=== PATIENT | male | born 1935 | race Caucasian/White ===

== ENCOUNTER → 2016-09-22 | Outpatient (CLI) | payer MEDICARE, OTHER ==
[~2016-09-22] MED LIST: ACET-654 PO; ADV250INH INH; ADV500INH INH; ALDA25TA2 PO; ASPI81TA4 PO; ASPI81TA85 PO; ATEN50TA2 PO; ATRO0.06; CALA80TA PO; CALC600T7 PO; COLA100C PO; COMBAER6 INH; D 202000 PO; D 50CAP PO; DEMA20TA6 PO; FELO5TAB3 PO; FERR325T3 PO; FINA5TAB2 PO; FLON0.054; FOSA70TA PO; GUAI1TAB PO; K-TA10TA2 PO; LASI20TA PO; LOPR1TAB6 PO; MAGN400C2 PO; MAGN400T2 PO; MUCI600T34 PO; OXYGEN; PACE200T PO; PLAV75TA38 PO; POTA1TAB14 PO; PROT1TAB2 PO; SENN8.6T76 PO; SPIR1CAP IN; TAMS0.4C2 PO; TYLE167L PO; VERA240T16 PO; VITA100072 PO; VITA100T20 PO; XARE20TA PO; ZOCO40TA PO
[2016-09-22 13:41] LABS: FREE T4 1.58 NG/DL (0.76-1.46)
== END ==
LOC: M SMT 10:08
PROVIDERS: ATTEND Nurse Practitioner Family
DX: E03.9 Hypothyroidism, unspecified (principal)

== ENCOUNTER → 2016-12-29 | Outpatient (CLI) | payer MEDICARE, OTHER ==
[~2016-12-29] MED LIST changes: -COLA100C PO; +COLA100C3 PO
[2016-12-29 13:34] LABS: BASO % 0.3 % (0.0-1.0); EOS # 0.1 K/mm3 (0.0-0.50); EOS % 2.2 % (0.0-3.0); LARGE UNSTAINED CELL # 0.1 K/mm3 (0.0-0.4); LARGE UNSTAINED CELL % 2.4 % (0.0-4.0); LYMPH # 0.7 K/mm3 (1.5-4.5); LYMPH % 11.6 % (24.0-44.0); MEAN CORPUSCULAR HEMOGLOBIN 32.3 pg (27.0-33.0); MEAN CORPUSCULAR HGB CONC 34.1 g/dl (32.0-36.5); MEAN CORPUSCULAR VOLUME 94.6 fl (80.0-96.0); MONO # 0.5 K/mm3 (0.0-0.8); MONO % 7.7 % (0.0-5.0); NEUTROPHILS # 4.6 K/mm3 (1.8-7.7); NEUTROPHILS % 75.8 % (36.0-66.0); PLATELET COUNT, AUTOMATED 228 k/mm3 (150-450); RED CELL DISTRIBUTION WIDTH 14.9 % (11.5-14.5)
[2016-12-29 13:55] LABS: ALBUMIN 3.2 GM/DL (3.2-5.2); BILIRUBIN,TOTAL 0.3 MG/DL (0.2-1.0); CALCIUM LEVEL 8.6 MG/DL (8.8-10.2); CREATININE FOR GFR 1.31 MG/DL (0.70-1.30); FREE T4 1.59 NG/DL (0.76-1.46); GLOMERULAR FILTRATION RATE 55.8 (>35); PERCENT SATURATION 11.2 % (19.7-37.4); POTASSIUM SERUM 4.5 MEQ/L (3.5-5.1); TOTAL PROTEIN 6.4 GM/DL (6.4-8.2)
== END ==
LOC: M SMT 08:36
PROVIDERS: ATTEND Nurse Practitioner Family
DX: D64.9 Anemia, unspecified (principal); I11.9 Hypertensive heart disease without heart failure; E03.2 Hypothyroidism due to medicaments and other exogenous substances

== ENCOUNTER → 2017-03-23 | Outpatient (CLI) | payer MEDICARE, OTHER ==
[~2017-03-23] MED LIST changes: -ACET-654 PO; +ACET1TAB17 PO; +ASPI81TA18 PO; -ASPI81TA4 PO; -COLA100C3 PO; +COLA100C5 PO; +FELO5TAB PO; -FELO5TAB3 PO; -MUCI600T34 PO; +MUCI600T37 PO; +PLAV1TAB2 PO; -PLAV75TA38 PO
--- NOTE | 2017-03-23 09:45 | REP ---
Chest two views HISTORY: Tachycardia Comparison: 02/07/2016 A minimal increase in interstitial markings is present consistent with chronic interstitial change. The heart is normal in size. The pulmonary vasculature is normal in appearance. The bony structure is intact. IMPRESSION: Chronic interstitial change. Signed by Pritesh Melo MD 03/23/2017 09:37 A
== END ==
LOC: M SMT 09:15
PROVIDERS: ATTEND Nurse Practitioner Family
DX: I47.2 Ventricular tachycardia (principal)

== ENCOUNTER → 2017-03-29 | Outpatient (CLI) | payer MEDICARE, OTHER ==
[2017-03-29 14:58] LABS: ALBUMIN 3.5 GM/DL (3.2-5.2); ALBUMIN/GLOBULIN RATIO 1.17 (1.00-1.93); BILIRUBIN,TOTAL 0.4 MG/DL (0.2-1.0); CALCIUM LEVEL 9.3 MG/DL (8.8-10.2); CREATININE FOR GFR 1.46 MG/DL (0.70-1.30); FREE T4 1.87 NG/DL (0.76-1.46); GLOMERULAR FILTRATION RATE 49.2 (>35); POTASSIUM SERUM 4.6 MEQ/L (3.5-5.1); TOTAL PROTEIN 6.5 GM/DL (6.4-8.2)
== END ==
LOC: M SMT 08:46
PROVIDERS: ATTEND Nurse Practitioner Family
DX: I11.9 Hypertensive heart disease without heart failure (principal); E03.9 Hypothyroidism, unspecified

== ENCOUNTER → 2017-05-07 | Outpatient (REF) | payer MEDICARE, OTHER | LOC: M LAB REF 14:13 | PROVIDERS: ATTEND Family Medicine | DX: L82.1 Other seborrheic keratosis (principal); L85.8 Other specified epidermal thickening | CPT/HCPCS: 11100; 88305; G0463 ==

== ENCOUNTER → 2017-06-07 | Outpatient (REF) | payer MEDICARE, OTHER ==
[2017-06-07 12:05] LABS: ALBUMIN 3.2 GM/DL (3.2-5.2); ALBUMIN/GLOBULIN RATIO 0.97 (1.00-1.93); BILIRUBIN,TOTAL 0.5 MG/DL (0.2-1.0); CALCIUM LEVEL 8.8 MG/DL (8.8-10.2); CREATININE FOR GFR 1.29 MG/DL (0.70-1.30); FREE T4 1.7 NG/DL (0.76-1.46); GLOMERULAR FILTRATION RATE 56.8 (>35); POTASSIUM SERUM 4.4 MEQ/L (3.5-5.1); TOTAL PROTEIN 6.5 GM/DL (6.4-8.2)
== END ==
LOC: M SFHCPLAZ 08:46
PROVIDERS: ATTEND Nurse Practitioner Family
DX: I11.9 Hypertensive heart disease without heart failure (principal); E03.2 Hypothyroidism due to medicaments and other exogenous substances; I25.10 Atherosclerotic heart disease of native coronary artery without angina pectoris

== ENCOUNTER → 2017-10-26 | Outpatient (CLI) | payer MEDICARE, OTHER | LOC: M SMT 10:06 | DX: J84.9 Interstitial pulmonary disease, unspecified (principal); J44.9 Chronic obstructive pulmonary disease, unspecified | CPT/HCPCS: 71046 ==

== ENCOUNTER 2017-11-07 09:16 | Emergency (ER) | payer MEDICARE, OTHER ==
[2017-11-07] MEDS: TETANUS/DIPHTHERIA TOX ADSORB ADULT 0.5ML SYR/VIAL (90714) IM (10:03)
== END 2017-11-07 10:16 | disposition home or self-care (01) ==
LOC: M ED 09:16
DX: S51.002A Unspecified open wound of left elbow, initial encounter (principal); W22.09XA Striking against other stationary object, initial encounter; Y92.009 Unspecified place in unspecified non-institutional (private) residence as the place of occurrence of the external cause; I10 Essential (primary) hypertension; J44.9 Chronic obstructive pulmonary disease, unspecified; E78.00 Pure hypercholesterolemia, unspecified; E03.9 Hypothyroidism, unspecified; K21.9 Gastro-esophageal reflux disease without esophagitis; Z79.899 Other long term (current) drug therapy; Z79.01 Long term (current) use of anticoagulants; Z79.82 Long term (current) use of aspirin; Z98.890 Other specified postprocedural states; I25.2 Old myocardial infarction
CPT/HCPCS: 90714

== ENCOUNTER → 2017-11-08 | Outpatient (REF) | payer MEDICARE, OTHER ==
[2017-11-08 12:24] LABS: FREE T4 2.25 NG/DL (0.76-1.46); THYROID STIMULATING HORMONE 0.174 uIU/ML (0.358-3.740)
== END ==
LOC: M SFHCPLAZ 09:25
DX: E03.9 Hypothyroidism, unspecified (principal)
CPT/HCPCS: 84443

== ENCOUNTER → 2017-12-22 | Outpatient (CLI) | payer MEDICARE, OTHER ==
[2017-12-22 13:49] LABS: BASO % 0.6 % (0.0-1.0); EOS # 0.1 10^3/uL (0.0-0.50); EOS % 1.1 % (0.0-3.0); HEMATOCRIT 39.9 % (42.0-52.0); HEMOGLOBIN 12.5 g/dl (13.5-17.5); IMMATURE GRANULOCYTE % 0.5 % (0-3.0); LYMPH # 0.7 10^3/uL (1.5-4.5); LYMPH % 10.7 % (24.0-44.0); MEAN CORPUSCULAR HEMOGLOBIN 28.3 pg (27.0-33.0); MEAN CORPUSCULAR HGB CONC 31.3 g/dl (32.0-36.5); MEAN CORPUSCULAR VOLUME 90.5 fl (80.0-96.0); MONO # 0.8 10^3/uL (0.0-0.8); MONO % 12.3 % (0.0-5.0); NEUTROPHILS # 4.8 10^3/uL (1.8-7.7); NEUTROPHILS % 74.8 % (36.0-66.0); PLATELET COUNT, AUTOMATED 228 10^3/uL (150-450); RED BLOOD COUNT 4.41 10^6/uL (4.30-6.10); RED CELL DISTRIBUTION WIDTH 22.1 % (11.5-14.5); WHITE BLOOD COUNT 6.4 10^3/uL (4.0-10.0)
[2017-12-22 14:42] LABS: ALBUMIN 3.5 GM/DL (3.2-5.2); ALBUMIN/GLOBULIN RATIO 1.03 (1.00-1.93); ALKALINE PHOSPHATASE 67 U/L (45-117); ALT/SGPT 39 U/L (12-78); ANION GAP 5 MEQ/L (8-16); AST/SGOT 36 U/L (7-37); BILIRUBIN,TOTAL 0.4 MG/DL (0.2-1.0); BLOOD UREA NITROGEN 17 MG/DL (7-18); CALCIUM LEVEL 8.9 MG/DL (8.8-10.2); CARBON DIOXIDE LEVEL 29 MEQ/L (21-32); CHLORIDE LEVEL 107 MEQ/L (98-107); CREATININE FOR GFR 1.51 MG/DL (0.70-1.30); FREE T4 1.69 NG/DL (0.76-1.46); GLOMERULAR FILTRATION RATE 47.2 (>35); GLUCOSE, FASTING 106 MG/DL (70-100); MAGNESIUM LEVEL 2.1 MG/DL (1.8-2.4); POTASSIUM SERUM 4.8 MEQ/L (3.5-5.1); SODIUM LEVEL 141 MEQ/L (136-145); TOTAL PROTEIN 6.9 GM/DL (6.4-8.2)
== END ==
LOC: M SMT 09:16
DX: I47.2 Ventricular tachycardia (principal)
CPT/HCPCS: 83735

== ENCOUNTER → 2018-01-04 | Outpatient (REF) | payer MEDICARE, OTHER ==
[2018-01-04 12:42] LABS: BASO % 0.3 % (0.0-1.0); EOS % 0.5 % (0.0-3.0); HEMATOCRIT 37.7 % (42.0-52.0); IMMATURE GRANULOCYTE % 0.5 % (0-3.0); LYMPH # 0.5 10^3/uL (1.5-4.5); LYMPH % 8.1 % (24.0-44.0); MEAN CORPUSCULAR HEMOGLOBIN 29.1 pg (27.0-33.0); MEAN CORPUSCULAR HGB CONC 31.8 g/dl (32.0-36.5); MEAN CORPUSCULAR VOLUME 91.5 fl (80.0-96.0); MONO # 0.9 10^3/uL (0.0-0.8); MONO % 14.1 % (0.0-5.0); NEUTROPHILS # 4.8 10^3/uL (1.8-7.7); NEUTROPHILS % 76.5 % (36.0-66.0); PLATELET COUNT, AUTOMATED 190 10^3/uL (150-450); RED BLOOD COUNT 4.12 10^6/uL (4.30-6.10); RED CELL DISTRIBUTION WIDTH 20.1 % (11.5-14.5); WHITE BLOOD COUNT 6.3 10^3/uL (4.0-10.0)
[2018-01-04 13:00] LABS: ALBUMIN/GLOBULIN RATIO 0.88 (1.00-1.93); ALKALINE PHOSPHATASE 56 U/L (45-117); ALT/SGPT 37 U/L (12-78); ANION GAP 9 MEQ/L (8-16); AST/SGOT 30 U/L (7-37); BILIRUBIN,TOTAL 0.5 MG/DL (0.2-1.0); BLOOD UREA NITROGEN 17 MG/DL (7-18); CALCIUM LEVEL 8.6 MG/DL (8.8-10.2); CARBON DIOXIDE LEVEL 28 MEQ/L (21-32); CHLORIDE LEVEL 106 MEQ/L (98-107); CREATININE FOR GFR 1.32 MG/DL (0.70-1.30); FREE T4 1.98 NG/DL (0.76-1.46); GLOMERULAR FILTRATION RATE 55.1 (>35); GLUCOSE, FASTING 96 MG/DL (70-100); IRON (FE) 28 UG/DL (65-175); PERCENT SATURATION 9.8 % (19.7-50.0); POTASSIUM SERUM 4.3 MEQ/L (3.5-5.1); SODIUM LEVEL 143 MEQ/L (136-145); THYROID STIMULATING HORMONE 0.934 uIU/ML (0.358-3.740); TOTAL IRON BINDING CAPACITY 286 UG/DL (250-450); TOTAL PROTEIN 6.4 GM/DL (6.4-8.2)
[2018-01-04 13:49] LABS: CREATININE, URINE 15.8 MG/DL; MALB URINE SIEMENS 9.6 MG/L; MAU/CREAT RATIO 60.7 MCG/MG (0.0-30.0)
== END ==
LOC: M SFHCPLAZ 09:41
DX: D64.9 Anemia, unspecified (principal); I11.9 Hypertensive heart disease without heart failure; E03.2 Hypothyroidism due to medicaments and other exogenous substances
CPT/HCPCS: 83550

== ENCOUNTER → 2018-02-16 | Outpatient (REF) | payer MEDICARE, OTHER ==
[2018-02-17 13:38] LABS: BASO # 0.1 10^3/uL (0.0-0.2); BASO % 0.9 % (0.0-1.0); EOS # 0.1 10^3/uL (0.0-0.50); EOS % 1.7 % (0.0-3.0); HEMATOCRIT 39.5 % (42.0-52.0); HEMOGLOBIN 12.6 g/dl (13.5-17.5); IMMATURE GRANULOCYTE % 0.4 % (0-3.0); LYMPH # 0.7 10^3/uL (1.5-4.5); LYMPH % 10.2 % (24.0-44.0); MEAN CORPUSCULAR HGB CONC 31.9 g/dl (32.0-36.5); MONO # 0.8 10^3/uL (0.0-0.8); MONO % 11.5 % (0.0-5.0); NEUTROPHILS # 5.2 10^3/uL (1.8-7.7); NEUTROPHILS % 75.3 % (36.0-66.0); PLATELET COUNT, AUTOMATED 301 10^3/uL (150-450); RED CELL DISTRIBUTION WIDTH 17.3 % (11.5-14.5); WHITE BLOOD COUNT 6.9 10^3/uL (4.0-10.0)
== END ==
LOC: M SFHCPLAZ 16:53
DX: J44.9 Chronic obstructive pulmonary disease, unspecified (principal)
CPT/HCPCS: 85025

== ENCOUNTER → 2018-02-17 | Outpatient (CLI) | payer MEDICARE, OTHER | LOC: M SMT 10:04 | DX: J44.9 Chronic obstructive pulmonary disease, unspecified (principal); R05 Cough | CPT/HCPCS: 71046 ==

== ENCOUNTER → 2018-05-20 | Outpatient (REF) | payer MEDICARE, OTHER | LOC: M SFHCPLAZ 10:50 | DX: E03.2 Hypothyroidism due to medicaments and other exogenous substances (principal); E78.00 Pure hypercholesterolemia, unspecified; R63.4 Abnormal weight loss; Z53.8 Procedure and treatment not carried out for other reasons ==

== ENCOUNTER → 2018-05-21 | Outpatient (CLI) | payer MEDICARE, OTHER ==
[2018-05-21 09:46] LABS: BASO % 0.5 % (0.0-1.0); EOS # 0.1 10^3/uL (0.0-0.50); EOS % 0.8 % (0.0-3.0); HEMATOCRIT 38.7 % (42.0-52.0); HEMOGLOBIN 12.4 g/dl (13.5-17.5); IMMATURE GRANULOCYTE % 0.5 % (0-3.0); LYMPH # 0.6 10^3/uL (1.5-4.5); LYMPH % 7.3 % (24.0-44.0); MEAN CORPUSCULAR HEMOGLOBIN 30.9 pg (27.0-33.0); MEAN CORPUSCULAR VOLUME 96.5 fl (80.0-96.0); MONO # 0.9 10^3/uL (0.0-0.8); MONO % 10.2 % (0.0-5.0); NEUTROPHILS % 80.7 % (36.0-66.0); PLATELET COUNT, AUTOMATED 294 10^3/uL (150-450); RED BLOOD COUNT 4.01 10^6/uL (4.30-6.10); RED CELL DISTRIBUTION WIDTH 14.8 % (11.5-14.5); WHITE BLOOD COUNT 8.6 10^3/uL (4.0-10.0)
[2018-05-21 10:00] LABS: APPEARANCE, URINE CLEAR (CLEAR); BACTERIA, URINE AUTO NEGATIVE (NEGATIVE); BILIRUBIN, URINE AUTO NEGATIVE (NEGATIVE); BLOOD, URINE BLOOD NEGATIVE (NEGATIVE); COLOR, URINE STRAW (YELLOW); GLUCOSE, URINE (UA) AUTO NEGATIVE (NEGATIVE); KETONE, URINE AUTO NEGATIVE (NEGATIVE); LEUKOCYTE ESTERASE, URINE AUTO NEGATIVE (NEGATIVE); MUCUS, URINE SMALL (NEGATIVE); NITRITE, URINE AUTO NEGATIVE (NEGATIVE); PROTEIN, URINE AUTO NEGATIVE (NEGATIVE); RBC, URINE AUTO 3 /HPF (0-3); SPECIFIC GRAVITY URINE AUTO 1.004 (1.002-1.035); SQUAMOUS EPITHELIAL CELL UR AU 0 /HPF (0-6); UROBILINOGEN, URINE AUTO 0.2 mg/dL (0.0-2.0); WBC, URINE AUTO 0 /HPF (0-3)
[2018-05-21 10:13] LABS: ALBUMIN 2.9 GM/DL (3.2-5.2); ALBUMIN/GLOBULIN RATIO 0.74 (1.00-1.93); ALKALINE PHOSPHATASE 88 U/L (45-117); ALT/SGPT 40 U/L (12-78); ANION GAP 8 MEQ/L (8-16); AST/SGOT 36 U/L (7-37); BILIRUBIN,TOTAL 0.4 MG/DL (0.2-1.0); BLOOD UREA NITROGEN 13 MG/DL (7-18); CALCIUM LEVEL 8.6 MG/DL (8.8-10.2); CARBON DIOXIDE LEVEL 26 MEQ/L (21-32); CHLORIDE LEVEL 104 MEQ/L (98-107); CREATININE FOR GFR 1.21 MG/DL (0.70-1.30); GLOMERULAR FILTRATION RATE > 60.0 (>35); GLUCOSE, FASTING 97 MG/DL (70-100); POTASSIUM SERUM 4.4 MEQ/L (3.5-5.1); SODIUM LEVEL 138 MEQ/L (136-145); TOTAL PROTEIN 6.8 GM/DL (6.4-8.2)
== END ==
LOC: M LAB 09:09
DX: E03.2 Hypothyroidism due to medicaments and other exogenous substances (principal); E78.00 Pure hypercholesterolemia, unspecified; R63.4 Abnormal weight loss
CPT/HCPCS: 84443

== ENCOUNTER → 2018-06-28 | Outpatient (CLI) | payer MEDICARE, OTHER | LOC: M ADAMS 09:29 | DX: I51.7 Cardiomegaly (principal); I70.0 Atherosclerosis of aorta; J98.4 Other disorders of lung; R05 Cough; Z87.09 Personal history of other diseases of the respiratory system; Z23 Encounter for immunization | CPT/HCPCS: 71046 ==

== ENCOUNTER → 2018-07-11 | Outpatient (CLI) | payer MEDICARE, OTHER | LOC: M RAD 07:36 | DX: I71.4 Abdominal aortic aneurysm, without rupture (principal) | CPT/HCPCS: 76775 ==

== ENCOUNTER → 2018-08-22 | Outpatient (CLI) | payer MEDICARE, OTHER ==
[~2018-08-22] MED LIST changes: -ACET1TAB17 PO; +ACET1TAB55 PO; -ASPI81TA18 PO; +ASPI81TA52 PO
--- NOTE | 2018-08-22 13:38 | REP ---
CT study of the abdomen and pelvis without IV or oral contrast: History: Abdominal aortic aneurysm without rupture. Comparison aortic sonography from July 11, 2018 shows a 6.7 x 8.7 cm fusiform aneurysm of the abdominal aorta. No comparison CT study. CT findings: Digital preliminary fire protection specialist radiograph demonstrates an aortobi-iliac stent graft. Bowel gas pattern is normal. The lung bases show bilateral basilar interstitial coarse fibrosis. There is some atelectasis with air bronchograms in the right middle lobe. No pleural effusion is seen. No focal hepatic or splenic lesion is seen. The distal thoracic aorta is tortuous and calcific but not aneurysmal. Calcification is seen at the SMA and bilateral renal artery origins. There may be a stent in the left renal artery. There is an aortobi-iliac stent graft noted in place. The [place] aortic aneurysm measures 8.2 cm in transverse dimension by 7.0 cm in greatest anteroposterior dimension. There is a right internal iliac artery aneurysm measuring 3.1 cm and a left internal iliac artery aneurysm is noted as well. This measures 2.8 cm in diameter. There is a cyst overlying the common femoral artery in the left groin 4.9 x 3.0 x 3.4 cm. This is compatible with an old hematoma seroma cavity. There is no evidence of retroperitoneal hemorrhage. There is a cyst in the left mid kidney which measures 3.2 cm in greatest diameter. No pancreatic abnormality is seen. The gallbladder is unremarkable. Small and large intestinal bowel loops are normal. There are dystrophic calcifications in the prostate gland. Impression: Aortobi-iliac stent graft for a large abdominal aortic aneurysm as above. 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 There is a hematoma seroma anterior to the common femoral artery on the left. There are small left renal cysts. Electronically Signed by Liban Chung MD 08/22/2018 08:04 P
== END ==
LOC: M RAD 09:24
PROVIDERS: ATTEND Surgery Vascular Surgery
DX: I71.4 Abdominal aortic aneurysm, without rupture (principal); N28.1 Cyst of kidney, acquired

== ENCOUNTER → 2018-09-15 | Outpatient (REF) | payer MEDICARE, OTHER ==
[~2018-09-15] MED LIST changes: -LASI20TA PO; +LASI20TA3 PO
[2018-09-15 18:21] LABS: TOTAL PROTEIN 6.8 GM/DL (6.4-8.2)
[2018-09-15 18:32] LABS: FOLATE 9.4 NG/ML (>5.4); VITAMIN B12 LEVEL 1089 PG/ML (247-911)
[2018-09-18 00:06] LABS: FREE KAPPA LIGHT CHAINS SERUM 62.1 mg/L (3.3-19.4); FREE LAMBDA LIGHT CHAINS SERUM 36.8 mg/L (5.7-26.3); KAPPA/LAMBDA RATIO SERUM 1.69 (0.26-1.65)
[2018-09-20 12:45] LABS: ALBUMIN 3.24 GM/DL (3.29-5.55); ALBUMIN % 47.6 % (55.8-66.1); ALPHA-1-GLOBULIN % 6.5 % (2.9-4.9); ALPHA-1-GLOBULINS 0.44 GM/DL (0.17-0.41); ALPHA-2-GLOBULINS 0.86 GM/DL (0.42-0.99); ALPHA-2-GLOBULINS % 12.6 % (7.1-11.8); BETA-1-GLOBULINS % 7.3 % (4.7-7.2); BETA-2-GLOBULINS 0.45 GM/DL (0.19-0.55); BETA-2-GLOBULINS % 6.6 % (3.2-6.5); GAMMA GLOBULIN % 19.4 % (11.1-18.8); GAMMA GLOBULINS 1.32 GM/DL (0.65-1.58)
== END ==
LOC: M SFHCPLAZ 15:02
PROVIDERS: ATTEND Nurse Practitioner Family
DX: D64.9 Anemia, unspecified (principal); D75.89 Other specified diseases of blood and blood-forming organs
CPT/HCPCS: 36415; 82607; 82746; 83010; 83883; 84165; G0463

== ENCOUNTER → 2018-12-09 | Outpatient (REF) | payer MEDICARE, OTHER ==
[~2018-12-09] MED LIST changes: +VITA100018 PO; -VITA100072 PO; -VITA100T20 PO; +VITA100T51 PO
[2018-12-09 12:02] LABS: HEMATOCRIT 37.2 % (42.0-52.0); MEAN CORPUSCULAR HEMOGLOBIN 31.6 pg (27.0-33.0); MEAN CORPUSCULAR HGB CONC 32.3 g/dl (32.0-36.5); MEAN CORPUSCULAR VOLUME 97.9 fl (80.0-96.0); PLATELET COUNT, AUTOMATED 260 10^3/uL (150-450); WHITE BLOOD COUNT 7.4 10^3/uL (4.0-10.0)
[2018-12-09 12:46] LABS: ALBUMIN 3.3 GM/DL (3.2-5.2); BILIRUBIN,TOTAL 0.4 MG/DL (0.2-1.0); CALCIUM LEVEL 8.8 MG/DL (8.8-10.2); CHOLESTEROL RISK RATIO 2.833 (<5); CREATININE FOR GFR 1.25 MG/DL (0.70-1.30); FREE T4 1.94 NG/DL (0.76-1.46); GLOMERULAR FILTRATION RATE 58.6 (>35); MAGNESIUM LEVEL 1.9 MG/DL (1.8-2.4); PERCENT SATURATION 26.2 % (19.7-50.0); POTASSIUM SERUM 4.6 MEQ/L (3.5-5.1); THYROID STIMULATING HORMONE 4.3 uIU/ML (0.358-3.740); TOTAL PROTEIN 6.8 GM/DL (6.4-8.2)
== END ==
LOC: M SFHCPLAZ 08:49
PROVIDERS: ATTEND Nurse Practitioner Family
DX: D64.9 Anemia, unspecified (principal); E83.51 Hypocalcemia; E03.2 Hypothyroidism due to medicaments and other exogenous substances; I25.10 Atherosclerotic heart disease of native coronary artery without angina pectoris; I47.2 Ventricular tachycardia

== ENCOUNTER → 2019-01-03 | Outpatient (CLI) | payer MEDICARE, OTHER ==
[2019-01-03 14:01] LABS: BASO % 0.3 % (0.0-1.0); EOS # 0.1 10^3/uL (0.0-0.50); EOS % 0.6 % (0.0-3.0); HEMATOCRIT 38.5 % (42.0-52.0); HEMOGLOBIN 12.4 g/dl (13.5-17.5); LYMPH # 0.7 10^3/uL (1.5-4.5); MEAN CORPUSCULAR HEMOGLOBIN 32.1 pg (27.0-33.0); MEAN CORPUSCULAR HGB CONC 32.2 g/dl (32.0-36.5); MEAN CORPUSCULAR VOLUME 99.7 fl (80.0-96.0); MONO # 0.9 10^3/uL (0.0-0.8); MONO % 7.4 % (0.0-5.0); NEUTROPHILS # 10.1 10^3/uL (1.8-7.7); NEUTROPHILS % 85.5 % (36.0-66.0); PLATELET COUNT, AUTOMATED 311 10^3/uL (150-450); RED BLOOD COUNT 3.86 10^6/uL (4.30-6.10); WHITE BLOOD COUNT 11.9 10^3/uL (4.0-10.0)
[2019-01-03 14:15] LABS: ALBUMIN 3.2 GM/DL (3.2-5.2); BILIRUBIN,TOTAL 0.5 MG/DL (0.2-1.0); CREATININE FOR GFR 1.3 MG/DL (0.70-1.30); FREE T4 2.02 NG/DL (0.76-1.46); MAGNESIUM LEVEL 1.6 MG/DL (1.8-2.4); POTASSIUM SERUM 4.6 MEQ/L (3.5-5.1); THYROID STIMULATING HORMONE 2.91 uIU/ML (0.358-3.740); TOTAL PROTEIN 6.8 GM/DL (6.4-8.2)
== END ==
LOC: M SMT 10:55
PROVIDERS: ATTEND Physician Assistant
DX: I47.2 Ventricular tachycardia (principal)

== ENCOUNTER → 2019-01-27 | Outpatient (CLI) | payer MEDICARE, OTHER ==
[2019-01-27 10:06] LABS: BASO % 0.4 % (0.0-1.0); EOS # 0.1 10^3/uL (0.0-0.50); EOS % 0.7 % (0.0-3.0); HEMATOCRIT 39.2 % (42.0-52.0); HEMOGLOBIN 12.5 g/dl (13.5-17.5); LYMPH # 0.5 10^3/uL (1.5-4.5); LYMPH % 6.9 % (24.0-44.0); MEAN CORPUSCULAR HEMOGLOBIN 32.3 pg (27.0-33.0); MEAN CORPUSCULAR HGB CONC 31.9 g/dl (32.0-36.5); MEAN CORPUSCULAR VOLUME 101.3 fl (80.0-96.0); MONO # 0.7 10^3/uL (0.0-0.8); MONO % 10.3 % (0.0-5.0); NEUTROPHILS # 5.5 10^3/uL (1.8-7.7); NEUTROPHILS % 81.4 % (36.0-66.0); PLATELET COUNT, AUTOMATED 273 10^3/uL (150-450); RED BLOOD COUNT 3.87 10^6/uL (4.30-6.10); WHITE BLOOD COUNT 6.8 10^3/uL (4.0-10.0)
[2019-01-27 10:18] LABS: INR 1.11; PROTHROMBIN TIME 14.4 SECONDS (12.1-14.4)
[2019-01-27 10:19] LABS: PARTIAL THROMBOPLASTIN TIME 33.6 SECONDS (25.4-37.6)
[2019-01-27 10:33] LABS: CALCIUM LEVEL 8.6 MG/DL (8.8-10.2); CREATININE FOR GFR 1.39 MG/DL (0.70-1.30); GLOMERULAR FILTRATION RATE 51.8 (>35); POTASSIUM SERUM 4.2 MEQ/L (3.5-5.1)
== END ==
LOC: M SMT 08:42
PROVIDERS: ATTEND Surgery Vascular Surgery
DX: Z01.818 Encounter for other preprocedural examination (principal); I71.4 Abdominal aortic aneurysm, without rupture; D69.8 Other specified hemorrhagic conditions

== ENCOUNTER → 2019-02-10 | Outpatient (CLI) | payer MEDICARE, OTHER ==
[2019-02-10 14:06] LABS: BASO % 0.5 % (0.0-1.0); EOS # 0.1 10^3/uL (0.0-0.50); EOS % 0.7 % (0.0-3.0); HEMATOCRIT 37.2 % (42.0-52.0); HEMOGLOBIN 11.8 g/dl (13.5-17.5); LYMPH # 0.7 10^3/uL (1.5-4.5); LYMPH % 8.5 % (24.0-44.0); MEAN CORPUSCULAR HEMOGLOBIN 31.4 pg (27.0-33.0); MEAN CORPUSCULAR HGB CONC 31.7 g/dl (32.0-36.5); MEAN CORPUSCULAR VOLUME 98.9 fl (80.0-96.0); MONO # 0.8 10^3/uL (0.0-0.8); PLATELET COUNT, AUTOMATED 295 10^3/uL (150-450); RED BLOOD COUNT 3.76 10^6/uL (4.30-6.10); WHITE BLOOD COUNT 7.6 10^3/uL (4.0-10.0)
[2019-02-10 14:22] LABS: ALBUMIN 2.9 GM/DL (3.2-5.2); BILIRUBIN,TOTAL 0.5 MG/DL (0.2-1.0); CALCIUM LEVEL 8.6 MG/DL (8.8-10.2); CREATININE FOR GFR 1.3 MG/DL (0.70-1.30); FREE T4 1.93 NG/DL (0.76-1.46); POTASSIUM SERUM 4.4 MEQ/L (3.5-5.1); THYROID STIMULATING HORMONE 4.2 uIU/ML (0.358-3.740); TOTAL PROTEIN 7.2 GM/DL (6.4-8.2)
== END ==
LOC: M SMT 11:08
PROVIDERS: ATTEND Physician Assistant
DX: I47.2 Ventricular tachycardia (principal); I25.10 Atherosclerotic heart disease of native coronary artery without angina pectoris

== ENCOUNTER → 2019-03-08 | Outpatient (CLI) | payer MEDICARE, OTHER ==
[2019-03-08 13:25] LABS: HEMATOCRIT 36.6 % (42.0-52.0); HEMOGLOBIN 11.8 g/dl (13.5-17.5); MEAN CORPUSCULAR HEMOGLOBIN 32.4 pg (27.0-33.0); MEAN CORPUSCULAR HGB CONC 32.2 g/dl (32.0-36.5); MEAN CORPUSCULAR VOLUME 100.5 fl (80.0-96.0); PLATELET COUNT, AUTOMATED 265 10^3/uL (150-450); RED BLOOD COUNT 3.64 10^6/uL (4.30-6.10); WHITE BLOOD COUNT 6.8 10^3/uL (4.0-10.0)
[2019-03-08 13:42] LABS: ALBUMIN 3.1 GM/DL (3.2-5.2); BILIRUBIN,TOTAL 0.5 MG/DL (0.2-1.0); CALCIUM LEVEL 9.1 MG/DL (8.8-10.2); CREATININE FOR GFR 1.29 MG/DL (0.70-1.30); GLOMERULAR FILTRATION RATE 56.5 (>35); POTASSIUM SERUM 4.8 MEQ/L (3.5-5.1); THYROID STIMULATING HORMONE 4.54 uIU/ML (0.358-3.740)
[2019-03-11 00:09] LABS: FREE KAPPA LIGHT CHAINS SERUM 82.9 mg/L (3.3-19.4); FREE LAMBDA LIGHT CHAINS SERUM 41.1 mg/L (5.7-26.3); KAPPA/LAMBDA RATIO SERUM 2.02 (0.26-1.65)
== END ==
LOC: M SMT 09:44
PROVIDERS: ATTEND Nurse Practitioner Family
DX: E03.2 Hypothyroidism due to medicaments and other exogenous substances (principal); D64.9 Anemia, unspecified; I11.9 Hypertensive heart disease without heart failure

== ENCOUNTER → 2019-07-04 | Outpatient (REF) | payer MEDICARE, OTHER ==
[2019-07-04 11:12] LABS: HEMATOCRIT 35.8 % (42.0-52.0); HEMOGLOBIN 11.5 g/dl (13.5-17.5); MEAN CORPUSCULAR HEMOGLOBIN 32.3 pg (27.0-33.0); MEAN CORPUSCULAR HGB CONC 32.1 g/dl (32.0-36.5); MEAN CORPUSCULAR VOLUME 100.6 fl (80.0-96.0); PLATELET COUNT, AUTOMATED 244 10^3/uL (150-450); RED BLOOD COUNT 3.56 10^6/uL (4.30-6.10); WHITE BLOOD COUNT 7.4 10^3/uL (4.0-10.0)
[2019-07-04 11:40] LABS: BILIRUBIN,TOTAL 0.5 MG/DL (0.2-1.0); CALCIUM LEVEL 8.5 MG/DL (8.8-10.2); CREATININE FOR GFR 1.3 MG/DL (0.70-1.30); POTASSIUM SERUM 4.9 MEQ/L (3.5-5.1); THYROID STIMULATING HORMONE 6.39 uIU/ML (0.358-3.740); TOTAL PROTEIN 6.8 GM/DL (6.4-8.2)
[2019-07-06 00:07] LABS: FREE KAPPA LIGHT CHAINS SERUM 87.4 mg/L (3.3-19.4); FREE LAMBDA LIGHT CHAINS SERUM 44.8 mg/L (5.7-26.3); KAPPA/LAMBDA RATIO SERUM 1.95 (0.26-1.65)
== END ==
LOC: M SFHCPLAZ 09:05
PROVIDERS: ATTEND Family Medicine
DX: D64.9 Anemia, unspecified (principal); I11.9 Hypertensive heart disease without heart failure; E03.2 Hypothyroidism due to medicaments and other exogenous substances

== ENCOUNTER → 2020-01-19 | Outpatient (REF) | payer MEDICARE, OTHER ==
[~2020-01-19] MED LIST changes: -FELO5TAB PO; +FELO5TAB26 PO
[2020-01-19 13:19] LABS: HEMATOCRIT 34.8 % (42.0-52.0); HEMOGLOBIN 11.1 g/dl (13.5-17.5); MEAN CORPUSCULAR HEMOGLOBIN 31.2 pg (27.0-33.0); MEAN CORPUSCULAR HGB CONC 31.9 g/dl (32.0-36.5); MEAN CORPUSCULAR VOLUME 97.8 fl (80.0-96.0); PLATELET COUNT, AUTOMATED 297 10^3/uL (150-450); RED BLOOD COUNT 3.56 10^6/uL (4.30-6.10)
[2020-01-19 13:34] LABS: BILIRUBIN,TOTAL 0.4 MG/DL (0.2-1.0); CALCIUM LEVEL 8.8 MG/DL (8.8-10.2); CHOLESTEROL RISK RATIO 3.166 (<5); CREATININE FOR GFR 1.41 MG/DL (0.70-1.30); FREE T4 1.6 NG/DL (0.76-1.46); GLOMERULAR FILTRATION RATE 50.9 (>35); THYROID STIMULATING HORMONE 8.47 uIU/ML (0.358-3.740); TOTAL PROTEIN 6.8 GM/DL (6.4-8.2)
== END ==
LOC: M SFHCPLAZ 09:32
PROVIDERS: ATTEND Physician Assistant
DX: I11.9 Hypertensive heart disease without heart failure (principal); E03.2 Hypothyroidism due to medicaments and other exogenous substances; J44.9 Chronic obstructive pulmonary disease, unspecified; I25.10 Atherosclerotic heart disease of native coronary artery without angina pectoris

== ENCOUNTER 2020-09-02 09:53 | Inpatient (IN) | payer MEDICARE, OTHER ==
[~2020-09-02] VITALS: Ht 182.9 cm; Wt 82.5 kg
[2020-09-02] MEDS: ASCORBIC ACID 500 MG TAB PO SCH (09:00)
[~2020-09-02 09:53] MED LIST changes: -ASPI81TA85 PO; +ASPI81TA86 PO; +CALC-212 PO; -CALC600T7 PO; -SPIR1CAP IN; +SPIR1CAP INH
[2020-09-02] MEDS ORDERED: COMBAER6 INH (10:40)
[2020-09-02] MEDS ORDERED: MAGN400C2 PO (10:40)
[2020-09-02] MEDS ORDERED: LEVO75TA4 PO (10:40)
[2020-09-02] MEDS ORDERED: PEG1POW PO (10:40)
--- NOTE | 2020-09-02 10:53 | REP ---
INDICATION: DYSPNEA/COUGH. COMPARISON: June 28, 2018. TECHNIQUE: Portable upright AP chest radiograph. FINDINGS: There increased markings in the lung bases bilaterally. These are unchanged on the right and more prominent on the left on today's radiograph consistent with left base pneumonia. Heart is mildly enlarged. The aorta is calcific and tortuous as before. There are old healed rib fractures on the right.. IMPRESSION: Increased markings in the left base more prominent than previously consistent with pneumonia. Chronic increased markings right base.. <Electronically signed by Davon Chung > 09/02/20 [id number]
[2020-09-02 11:11] LABS: BASO % 0.3 % (0.0-1.0); EOS % 0.1 % (0.0-3.0); HEMATOCRIT 23.5 % (42.0-52.0); HEMOGLOBIN 7.2 g/dl (13.5-17.5); LYMPH # 0.3 10^3/uL (1.5-5.0); LYMPH % 4.3 % (24.0-44.0); MEAN CORPUSCULAR HEMOGLOBIN 32.7 pg (27.0-33.0); MEAN CORPUSCULAR HGB CONC 30.6 g/dl (32.0-36.5); MEAN CORPUSCULAR VOLUME 106.8 fl (80.0-96.0); MONO # 0.6 10^3/uL (0.0-0.8); MONO % 8.1 % (0.0-5.0); NEUTROPHILS % 86.8 % (36.0-66.0); PLATELET COUNT, AUTOMATED 325 10^3/uL (150-450); WHITE BLOOD COUNT 6.9 10^3/uL (4.0-10.0)
[2020-09-02] MEDS ORDERED: FUROSEMIDE 40MG/4ML VIAL (J1940) IV ONE (12:30)
[2020-09-02] MEDS ORDERED: SENO8.6T10 PO (13:27)
[2020-09-02] MEDS ORDERED: TORS20TA2 PO (13:27)
[2020-09-02] MEDS ORDERED: VITA500075 PO (13:27)
[2020-09-02] MEDS ORDERED: TAMS1CAP17 PO (13:27)
[2020-09-02] MEDS ORDERED: FLUTISP NARES (13:27)
[2020-09-02] MEDS ORDERED: ASPI81TA26 PO (13:27)
[2020-09-02] MEDS ORDERED: FLUTICASONE PROP 0.05% NASAL SPRAY 16 GM (FLONASE) NARES PRN (14:00)
[2020-09-02] MEDS ORDERED: PANTOPRAZOLE 40MG TAB (PROTONIX) PO PRN (14:00)
[2020-09-02] MEDS ORDERED: ACETAMINOPHEN 325 MG TAB PO PRN (14:00)
[2020-09-02] MEDS ORDERED: FUROSEMIDE 20MG/2ML VIAL (J1940) IV SCH (14:30)
[2020-09-02 15:18] LABS: PERCENT SATURATION 5.7 % (19.7-50.0)
[2020-09-02] MEDS ORDERED: metOLazone 2.5 MG TAB PO ONE (17:30)
[2020-09-02 17:36] VITALS: BP 154/71
[2020-09-02] MEDS: SUCRALFATE 1 GM TAB PO SCH ×2 (17:48→20:36)
--- NOTE | 2020-09-02 18:00 | HPEPDOC ---
[facility] Medical History & Physical Date of Admission Sep 02, 2020 Date of Service: Sep 02, 2020 History and Physical CHIEF COMPLAINT: "I couldn't get my shoes on. My legs were sore and swollen up." x several days, almost a week HISTORY OF PRESENT ILLNESS: 84y/o Male with past medical history significant for Vtach/Torsades de pointes/cardiac arrest/ CAD with 2 drug-eluting stents to LAD 12/2014, Moderate pulmonary hypertension, COPD on 2.5liters home oxygen at night, chronic hypoxic respiratory failure, Diastolic CHF EF 75%, HTN, impaired fasting glucose, dyslipidemia, Peripheral arterial disease,AAA EVAR 05/2015, s/pright iliac artery aneurysm/ femoral artery mynx closure 02/2019, GI bleed s/p rbc transfusion, adenomatous polyp, aspiration pneumonia after EGD, Fatty liver, Right UE DVT 2014, presents to the ER with almost a week of increasing bilateral lower extremity edema, unable to put his shoes on, and 2-3 days of rhinorrhea, PND, 2pillow orthopnea, MORALES, wet cough without chest pain, pressure, tightness, l ightheadedness, dizziness, epigastric pain, nausea, vomiting, diaphoresis, fever, chills, or sense of impending doom. He denies changes in appetite, sleep, abdominal pain, dysuria, urgency, frequency, hematemesis, coffee-ground emesis, BRBPR, melena, or black tarry stools. He has been having brown stools and usually takes iron supplements. In the ER, he was found to have anemia with hemoglobin of 7.2 from baseline of 11.1 on 01/23, respiratory panel:(+)human rhinovirus, enterovirus, negative for COVID-19. EKG: no acute ischemic changes. CXR: bilateral infiltrates. Hospitalist was asked to admit for CHF exacerbation, symptomatic anemia, and viral URI. PAST MEDICAL HISTORY: Vtach/Torsades de pointes/cardiac arrest/ CAD with 2 drug-eluting stents to LAD 12/2014, Moderate pulmonary hypertension, COPD on 2.5liters home oxygen at night, chronic hypoxic respiratory failure, Diastolic CHF EF 75%, HTN, impaired fasting glucose, dyslipidemia, Peripheral arterial disease,AAA EVAR 05/2015, s/pright iliac artery aneurysm/ femoral artery mynx closure 02/2019,hypothyroidism, GI bleed s/p rbc transfusion, adenomatous polyp, aspiration pneumonia after EGD, Fatty liver, Right UE DVT 2014, bilateral iliac artery, proximal right iliac artery aneurysm, fatty liver, androgen deficiency, BPH, B12 deficiency, LVH, light chain disease with levated kappa, lambda chanins, negative SPEP 09/2018. PAST SURGICAL HISTORY: appendectomy, hernia repair, cataract surgery, 2016 colonoscopy -adenomatous polyp, egd complicated by aspiration pneumonia post procedure, EGD 02/2015. 05/2015,AAA EVAR 05/2015, s/pright iliac artery aneurysm/ femoral artery mynx closure 02/2019, CAD with 2 drug-eluting stents to LAD 12/2014 SOCIAL HISTORY: previous smoker, denies recreational drug use/ETOH, retired. FAMILY HISTORY: Father: age 46 cad/mi Mother: , leukemia ALLERGIES: Please see below. REVIEW OF SYSTEMS: 12 point ROS negative aside from positive findings on HPI HOME MEDICATIONS: Please see below. PHYSICAL EXAMINATION: VITAL SIGNS:see below GENERAL APPEARANCE: pale aaox3 no use of accessory respiratory muscles no icterus HEENT: (+)JVD moist mm no carotid bruits, stridor, or cervical LAD CARDIOVASCULAR: S1S2 (+)JVD S3 LUNGS: diminished breath sounds bilateral crackles AEBE no scoliosis no use of respiratory accessory muscles. no abdominal retractions. no cyanosis, or tripod positioning ABDOMEN: + bs soft nt nd no HSM EXTREMITIES: 3+ pitting edema b/l LE LABORATORY DATA: See below. IMAGING:see below MICROBIOLOGY: Please see below. ASSESSMENT: 84y/o Male with past medical history significant for Vtach/Torsades de pointes/cardiac arrest/ CAD with 2 drug-eluting stents to LAD 12/2014, Moderate pulmonary hypertension, COPD on 2.5liters home oxygen at night, chronic hypoxic respiratory failure, Diastolic CHF EF 75%, HTN, impaired fasting glucose, dyslipidemia, Peripheral arterial disease,AAA EVAR 05/2015, s/pright iliac artery aneurysm/ femoral artery mynx closure 02/2019, GI bleed s/p rbc transfusion, adenomatous polyp, aspiration pneumonia after EGD, Fatty liver, Right UE DVT 2014, presents to the ER with almost a week of increasing bilateral lower extremity edema, unable to put his shoes on, and 2-3 days of rhinorrhea, PND, 2pillow orthopnea, MORALES, wet cough without chest pain, pressure, tightness, lightheadedness, dizziness, epigastric pain, nausea, vomiting, diaphoresis, fever, chills, or sense of impending doom. He denies changes in appetite, sleep, abdominal pain, dysuria, urgency, frequency, hematemesis, coffee-ground emesis, BRBPR, melena, or black tarry stools. He has been having brown stools and usually takes iron supplements. In the ER, he was found to have anemia with hemoglobin of 7.2 from baseline of 11.1 on 01/23, respiratory panel:(+)human rhinovirus, enterovirus, negative for COVID-19. EKG: no acute ischemic changes. CXR: bilateral infiltrates. Hospitalist was asked to admit for CHF exacerbation, symptomatic anemia, and viral URI. Acute Diastolic CHF exacerbation -admit as an inpatient to telemetry unit -strict i/o -weigh daily -2liter fluid restriction -lasix 40 mg iv q6hrs. -serial mg, ionized calcium, bmp to supplement electrolytes as needed and monitor renal function -2d echo -cycle cardiac markers -no acute ST-T wave changes on EKG -telemetry to rule out arrhythmias Viral URI -respiratory panel negative for covid-19 -Human rhinovirus/enterovirus on Respiratory panel Symptomatic Anemia -history of gi bleed, rbc transfusion, post-EGD aspiration pneumonia, colonoscopy-adenomatous polyps -transfuse 3units rbc -cycle hemoglobin / hematocrit -continue iron, vitamin c -not medically optimized to do emergent endoscopy, until chf is resolved. -check iron studies, retic count, peripheral smear, stool for blood -PPI carafate Moderate Pulmonary HTN -complicating care Abnormal EKG with LVH -supportive care and resumed home meds CAD -2 drug eluting stents -resume home meds -metoprolol, statin, but hold Aspirin and plavix due to symptomatic anemia r/o gi bleed V-Tach/Cardiac arrest history -telemetry -monitor electrolytes -had 2 stents placed in LAD at that time -on chronic amiodarone PAD -continue statin -hold ASA and plavix due to anemia -if hemoccult negative, resume AAA repair/Femoral mynx closure -stable Impaired fasting glucose -check A1c, sliding scale h/o GI bleed while on xarelto -EGD with post op aspiration h/o Adenomatous polyps -if recurrent anemia after rbc transfusion, and chf is resolved, will need endoscopy. Light chain disease -elevated kappa/lambda chains -negative SPEP COPD with 2.5liters o2 qhs -resume inhalers Hypothyroidism -synthroid Vital Signs Vital Signs Date Time Temp Pulse Resp B/P (MAP) Pulse Ox O2 Delivery O2 Flow Rate FiO2 09/02/20 10:21 100 Nasal Cannula 2.0 09/02/20 10:13 96.7 59 20 144/67 Laboratory Data Labs 24H Laboratory Tests 2 09/02/20 10:45: Immature Granulocyte % (Auto) 0.4, Neutrophils (%) (Auto) 86.8H, Lymphocytes (%) (Auto) 4.3L, Monocytes (%) (Auto) 8.1H, Eosinophils (%) (Auto) 0.1, Basophils (%) (Auto) 0.3, Neutrophils # (Auto) 6.0, Lymphocytes # (Auto) 0.3L, Monocytes # (Auto) 0.6, Eosinophils # (Auto) 0.0, Basophils # (Auto) 0.0, Nucleated Red Blood Cells % (auto) 0.0, YR-Pnd-F-Type Natriuretic Peptide 1705H 09/02/20 10:53: POC Lactate (Misc Panel) 0.72 09/02/20 11:01: POC Glucose (Misc Panel) 107H, POC Sodium (Misc Panel) 133L, POC Potassium (Misc Panel) 4.6, POC Chloride (Misc Panel) 100, POC Total CO2 (Misc Panel) 28.0H, POC Blood Urea Nitrogen (Misc Panel 20, POC Ionized Calcium (Misc Panel) 4.7, POC Creatinine (Misc Panel) 1.4H, POC Hematocrit (Misc Panel) 22.0L 09/02/20 11:03: POC Troponin I (Misc) 0.00 CBC/BMP Laboratory Tests 09/02/20 10:45 Microbiology Microbiology 09/02/20 Respiratory Virus Panel (PCR) ([facility]) - Final, Complete Human Rhinovirus/Enterovirus Home Medications Scheduled Amiodarone Hcl (Pacerone) 200 Mg Tab, 200 MG PO DAILY Aspirin (Aspirin EC) 81 Mg Tablet.dr, 81 MG PO DAILY Cholecalciferol (Vitamin D3) (Vitamin D3) 125 Mcg Capsule, 125 MCG PO DAILY Clopidogrel Bisulfate (Plavix) 75 Mg Tab, 75 MG PO DAILY Cyanocobalamin (Vitamin B-12) (Vitamin B-12) 1,000 Mcg Tab, 1,000 MCG PO DAILY Ferrous Sulfate (Ferrous Sulfate) 325 Mg Tab, 325 MG PO DAILY Levothyroxine Sodium (Levothyroxine Sodium) 75 Mcg Tablet, 75 MCG PO DAILY Magnesium Oxide (Magnesium) 400 Mg Capsule, 400 MG PO DAILY Metoprolol Tartrate (Lopressor) 50 Mg Tab, 25 MG PO BID Potassium Chloride (Potassium Chloride) 20 Meq Tab, 20 MEQ PO BID Salmeterol/Fluticasone (Advair 500-50 Diskus) 28 Puff/Inhaler Aerp, 1 PUFF INH BID Sennosides/Docusate Sodium (Senokot-S Tablet) 1 Each Tablet, 1 TAB PO BID Simvastatin (Zocor) 40 Mg Tab, 40 MG PO QHS Tamsulosin Hcl (Tamsulosin HCl) 0.4 Mg Capsule, 0.4 MG PO DAILY Tiotropium [place] (Spiriva) 18 Mcg Cap, 1 PUFF INH QHS Torsemide (Torsemide) 20 Mg Tablet, 20 MG PO DAILY Scheduled PRN Acetaminophen (Acetaminophen) 325 Mg Tab, 325 MG PO Q6H PRN for PAIN / FEVER Fluticasone Propionate (Fluticasone Propionate) 16 Gm Uledi.susp, 1 SPRAY NARES BID PRN for CONGESTION Ipratropium/Albuterol Sulfate (Combivent Respimat 20-100 Mcg) 4 Gm Mist.inhal, 1 PUFF INH QID PRN for SOB/WHEEZING Pantoprazole Sodium (Protonix) 40 Mg Tab, 40 MG PO DAILY PRN for HEARTBURN Allergies Coded Allergies: warfarin (Verified Adverse Reaction, Mild, bruising, 09/02/20) A-FIB/CHADSVASC A-FIB History Current/History of A-Fib/PAF?: No Age/Risk Factor Scoring CHADSVASC: CHADSVASC Response (Comments) Value Age Risk Factor Age >/= 75 years old 2 Gender Risk Factor Male 0 Hx of CHF Yes 1 Hx of HTN Yes 1 Hx of Stroke/TIA/or VTE No 0 Hx of Diabetes No 0 Hx of Vascular Disease No 0 Total 4 Treatment Treatment ordered: NONE BRIANA ALFARO MD Sep 02, 2020 14:00
[2020-09-02] MEDS: FUROSEMIDE 40MG/4ML VIAL (J1940) IV SCH (18:15)
[2020-09-02 20:00] VITALS: BP 112/54
[2020-09-02] MEDS: PANTOPRAZOLE 40MG VIAL (C9113 PER 1) IV SCH (20:33)
[2020-09-02] MEDS: SENOKOT S TAB PO SCH (20:33)
[2020-09-02] MEDS: METOPROLOL TART 25 MG TABLET PO SCH (20:36)
[2020-09-02] MEDS: TIOTROPIUM INHALER/CAPSULE (SPIRIVA) INH SCH (20:45)
[2020-09-02 22:04] VITALS: BP 111/57
[2020-09-02 22:30] VITALS: BP 111/57
[2020-09-02 22:50] VITALS: BP 126/59
[2020-09-02 23:30] VITALS: BP 125/61
[2020-09-03] VITALS (13 sets, daily range): BP systolic 102–130; BP diastolic 52–66
[2020-09-03] MEDS: FUROSEMIDE 40MG/4ML VIAL (J1940) IV SCH ×4 (00:33→16:18)
[2020-09-03 05:01] LABS: BASO % 0.4 % (0.0-1.0); EOS # 0.1 10^3/uL (0.0-0.5); EOS % 1.1 % (0.0-3.0); HEMATOCRIT 31.5 % (42.0-52.0); LYMPH # 0.5 10^3/uL (1.5-5.0); LYMPH % 6.2 % (24.0-44.0); MEAN CORPUSCULAR HEMOGLOBIN 29.2 pg (27.0-33.0); MEAN CORPUSCULAR HGB CONC 31.1 g/dl (32.0-36.5); MEAN CORPUSCULAR VOLUME 93.8 fl (80.0-96.0); MONO # 0.7 10^3/uL (0.0-0.8); MONO % 9.1 % (0.0-5.0); NEUTROPHILS # 6.3 10^3/uL (1.5-8.5); NEUTROPHILS % 82.7 % (36.0-66.0); PLATELET COUNT, AUTOMATED 318 10^3/uL (150-450); RED BLOOD COUNT 3.36 10^6/uL (4.30-6.10); WHITE BLOOD COUNT 7.6 10^3/uL (4.0-10.0)
[2020-09-03 05:07] LABS: HEMOGLOBIN 9.8 g/dl (13.5-17.5)
[2020-09-03 05:14] LABS: HEMOGLOBIN A1c 4.6 %
[2020-09-03 05:26] LABS: BLOOD UREA NITROGEN 21 MG/DL (7-18); CALCIUM LEVEL 7.8 MG/DL (8.8-10.2); CARBON DIOXIDE LEVEL 30 MEQ/L (21-32); CHLORIDE LEVEL 102 MEQ/L (98-107); CHOLESTEROL LEVEL 138 MG/DL (<200); CHOLESTEROL RISK RATIO 2.816 (<5); CK-MB VALUE MASS 1.2 NG/ML (<3.6); CPK CREATINE PHOSPHOKINASE 56 U/L (39-308); CREATININE FOR GFR 1.42 MG/DL (0.70-1.30); GLOMERULAR FILTRATION RATE 50.4 (>35); GLUCOSE, FASTING 89 MG/DL (70-100); HDL CHOLESTEROL 49 MG/DL (>40); LDL CHOLESTEROL 79 MG/DL (<100); MB/CK RELATIVE INDEX 2.14 (< OR =4); NON-HDL-C 89 MG/DL; NT-PRO BNP 2372 PG/ML (<450); POTASSIUM SERUM 3.8 MEQ/L (3.5-5.1); SODIUM LEVEL 141 MEQ/L (136-145); TRIGLYCERIDES LEVEL 50 MG/DL (<150); TROPONIN I < 0.02 NG/ML (< 0.10)
--- NOTE | 2020-09-03 06:36 | ECGEPIP ---
[facility] - ED Test Date: 2020-09-02 Pat Name: COOPER PARTIDA Department: Room: - Gender: Male [place]: : 1935 Requested By: Rodolfo Yañez Order Number: [id number] Reading MD: Rodolfo Vargas Measurements Intervals [place] Rate: 49 P: [place]: 0 QRS: 24 QRSD: 138 T: 35 QT: 506 QTc: 457 Interpretive Statements SINUS BRADYCARDIA WITH FIRST DEGREE AV BLOCK WITH OCCASIONAL VENTRICULAR PREMATURE COMPLEX RIGHT BUNDLE BRANCH BLOCK RATE CHANGE COMPARED TO 12/21/14 Electronically Signed on 09-03-2020 6:36:13 EST by Rodolfo Vargas
[2020-09-03] MEDS: LEVOTHYROXINE 75MCG TABLET (0.075MG) PO SCH (06:46)
[2020-09-03] MEDS: ASCORBIC ACID 500 MG TAB PO SCH (09:14)
[2020-09-03] MEDS: CYANOCOBALAMIN 500 MCG TAB PO SCH (09:14)
[2020-09-03] MEDS: FERROUS SULFATE 325MG TAB PO SCH (09:14)
[2020-09-03] MEDS: SUCRALFATE 1 GM TAB PO SCH ×4 (09:14→20:14)
[2020-09-03] MEDS: SENOKOT S TAB PO SCH ×2 (09:14→20:14)
[2020-09-03] MEDS: AMIODARONE 200 MG TAB (PACERONE) PO SCH (09:14)
[2020-09-03] MEDS: PANTOPRAZOLE 40MG VIAL (C9113 PER 1) IV SCH ×2 (09:14→20:14)
[2020-09-03] MEDS: METOPROLOL TART 25 MG TABLET PO SCH ×2 (09:15→21:00)
[2020-09-03] MEDS: TAMSULOSIN 0.4 MG CAP PO SCH (09:15)
--- NOTE | 2020-09-03 10:18 | IPNPDOC ---
Text Note Date of Service The patient was seen on 09/03/20. NOTE Subjective: Patient seen and examined at bedside. No acute overnight events reported. Patient has no new medical complaints this morning. He does note black tarry stools. . He states his last colonoscopy was about 5 years ago and that he is due in October 2020 for a repeat. . He denies any use of NSAIDs. Objective: VITAL SIGNS:see below GENERAL APPEARANCE: NAD, lying comfortably in bed, chronically ill appearing HEENT: (+)JVD moist mm no carotid bruits, stridor, or cervical LAD CARDIOVASCULAR: +S1S2, RRR LUNGS: CTA B/L, diminished breath sounds ABDOMEN: + bs soft nt nd EXTREMITIES: 2+ pitting edema b/l LE ASSESSMENT: 84y/o male with PMHx significant for CAD/[place] with 2 drug-eluting stents to LAD 12/2014, and further PCI September 2019, Moderate pulmonary hypertension, COPD/chronic hypoxic respiratory failure on 2.5L O2 at night, HFpEF LVEF 75%, HTN, impaired fasting glucose, dyslipidemia, Peripheral arterial disease,AAA EVAR 05/2015, s/pright iliac artery aneurysm/ femoral artery mynx closure 02/2019, GI bleed s/p rbc transfusion, adenomatous polyp, aspiration pneumonia after EGD, Fatty liver, Right UE DVT 2014, presents to the ER with almost a week of increasing bilateral lower extremity edema, unable to put his shoes on, and 2-3 days of rhinorrhea, PND, 2pillow orthopnea, MORALES, wet cough without chest pain, pressure, tightness, lightheadedness, dizziness, epigastric pain, nausea, vomiting, diaphoresis, fever, chills, or sense of impending doom. He denied changes in appetite, sleep, abdominal pain, dysuria, urgency, frequency, hematemesis, coffee-ground emesis, BRBPR, melena, or black tarry stools. He has been having brown stools and usually takes iron supplements. In the ER, he was found to have anemia with hemoglobin of 7.2 from baseline of 11.1 on 01/23, respiratory panel:(+)human rhinovirus, enterovirus, negative for COVID-19. EKG: no acute ischemic changes. CXR: bilateral infiltrates. Hospitalist was asked to admit for CHF exacerbation, symptomatic anemia, and viral URI. #Acute Diastolic CHF exacerbation -strict i/o -weigh daily -2liter fluid restriction -lasix 40 mg iv q6hrs. -2d echo - ECG/card markers unrevealing -no acute ST-T wave changes on EKG - telemetry monitoring #Viral URI -respiratory panel negative for covid-19 -Human rhinovirus/enterovirus on Respiratory panel #Symptomatic Anemia -history of gi bleed, rbc transfusion, post-EGD aspiration pneumonia, colonoscopy-adenomatous polyps -s/p 3PRBC -serial H/H -continue iron, vitamin c -check iron studies, retic count, peripheral smear, stool for blood - last colonoscopy was 5 years ago - he states he is due in Oct 2020 for his next scope -IV PPI, carafate #Moderate Pulmonary HTN -complicating care #Hx CAD/AL - s/p PCI 2014, Sep 2018 - Gene - Dr. Longoria -continue home meds - metoprolol, statin, ASA/plavix held due to symptomatic anemia r/o gi bleed -telemetry -monitor electrolytes -on chronic amiodarone #PAD -continue statin -hold ASA and plavix due to anemia -if hemoccult negative, resume #AAA repair/Femoral mynx closure -stable #Impaired fasting glucose #h/o GI bleed while on xarelto -Hx EGD with post op aspiration #h/o Adenomatous polyps -if recurrent anemia after rbc transfusion, and chf is resolved, will need endoscopy. #Light chain disease -elevated kappa/lambda chains -negative SPEP #COPD with 2.5liters o2 qhs -resume inhalers #Hypothyroidism -synthroid - check tsh #DVT prophylaxis - mechanical Dispo: pending clinical improvement VS,Fishbone, I+O VS, Fishbone, I+O Laboratory Tests 09/02/20 10:45 09/03/20 04:51 Vital Signs Date Time Temp Pulse Resp B/P (MAP) Pulse Ox O2 Delivery O2 Flow Rate FiO2 09/03/20 09:15 77 112/59 09/03/20 08:00 98.1 18 90 Room Air 09/03/20 04:00 2.0 I&O- Last 24 Hours up to 6 AM 09/03/20 06:00 Intake Total 1980 ml Output Total 2225 ml Balance -245 ml ALEENA FIGUEROA MD Sep 03, 2020 10:18
[2020-09-03] MEDS: ASPIRIN 81 MG ENTERIC TAB PO SCH (12:32)
[2020-09-03 13:05] LABS: CK-MB VALUE MASS 1.1 NG/ML (<3.6); CPK CREATINE PHOSPHOKINASE 47 U/L (39-308); MB/CK RELATIVE INDEX 2.34 (< OR =4); TROPONIN I < 0.02 NG/ML (< 0.10)
[2020-09-03 18:33] LABS: HEMATOCRIT 34.5 % (42.0-52.0); HEMOGLOBIN 10.7 g/dl (13.5-17.5)
[2020-09-03] MEDS: TIOTROPIUM INHALER/CAPSULE (SPIRIVA) INH SCH (20:08)
[2020-09-03] MEDS ORDERED: SIMVASTATIN 40 MG TAB PO SCH (21:00)
[2020-09-04] VITALS (31 sets, daily range): BP systolic 40–129; BP diastolic 50–87
[2020-09-04 05:16] LABS: HEMATOCRIT 33.4 % (42.0-52.0); HEMOGLOBIN 10.5 g/dl (13.5-17.5); LYMPH % 8.3 % (24.0-44.0); MEAN CORPUSCULAR HEMOGLOBIN 29.8 pg (27.0-33.0); MEAN CORPUSCULAR HGB CONC 31.4 g/dl (32.0-36.5); MEAN CORPUSCULAR VOLUME 94.9 fl (80.0-96.0); MONO % 10.9 % (0.0-5.0); NEUTROPHILS % 78.6 % (36.0-66.0); PLATELET COUNT, AUTOMATED 289 10^3/uL (150-450); RED BLOOD COUNT 3.52 10^6/uL (4.30-6.10); WHITE BLOOD COUNT 6.5 10^3/uL (4.0-10.0)
[2020-09-04 05:17] LABS: BASO % 0.5 % (0.0-1.0); EOS # 0.1 10^3/uL (0.0-0.5); EOS % 1.2 % (0.0-3.0); LYMPH # 0.5 10^3/uL (1.5-5.0); MONO # 0.7 10^3/uL (0.0-0.8); NEUTROPHILS # 5.2 10^3/uL (1.5-8.5)
[2020-09-04 05:42] LABS: CALCIUM LEVEL 8.3 MG/DL (8.8-10.2); CREATININE FOR GFR 1.58 MG/DL (0.70-1.30); GLOMERULAR FILTRATION RATE 44.6 (>35); MAGNESIUM LEVEL 1.9 MG/DL (1.8-2.4); POTASSIUM SERUM 3.1 MEQ/L (3.5-5.1)
[2020-09-04] MEDS: FUROSEMIDE 40MG/4ML VIAL (J1940) IV SCH ×2 (06:00)
[2020-09-04] MEDS: LEVOTHYROXINE 75MCG TABLET (0.075MG) PO SCH (06:28)
[2020-09-04] MEDS ORDERED: POTASSIUM CHLORIDE 10 MEQ SR TABLET PO ONE ×3 (06:45→10:45)
[2020-09-04] MEDS: SUCRALFATE 1 GM TAB PO SCH ×4 (07:30→21:17)
[2020-09-04] MEDS ORDERED: AMIODARONE HCL 150 MG in IV 1 EA IV STA ×6 (08:29→15:09)
[2020-09-04] MEDS ORDERED: SODIUM CHLORIDE 0.9% 1000ML IV ONE (08:45)
[2020-09-04] MEDS: AMIODARONE 200 MG TAB (PACERONE) PO SCH ×2 (09:00→17:33)
[2020-09-04] MEDS: METOPROLOL TART 25 MG TABLET PO SCH ×2 (09:00→21:17)
[2020-09-04 09:36] LABS: BASO % 0.3 % (0.0-1.0); EOS # 0.1 10^3/uL (0.0-0.5); EOS % 0.7 % (0.0-3.0); HEMATOCRIT 33.8 % (42.0-52.0); HEMOGLOBIN 10.6 g/dl (13.5-17.5); LYMPH # 0.7 10^3/uL (1.5-5.0); LYMPH % 9.5 % (24.0-44.0); MEAN CORPUSCULAR HEMOGLOBIN 29.7 pg (27.0-33.0); MEAN CORPUSCULAR HGB CONC 31.4 g/dl (32.0-36.5); MEAN CORPUSCULAR VOLUME 94.7 fl (80.0-96.0); MONO # 0.8 10^3/uL (0.0-0.8); MONO % 12.1 % (0.0-5.0); NEUTROPHILS # 5.3 10^3/uL (1.5-8.5); NEUTROPHILS % 77.1 % (36.0-66.0); PLATELET COUNT, AUTOMATED 265 10^3/uL (150-450); RED BLOOD COUNT 3.57 10^6/uL (4.30-6.10); WHITE BLOOD COUNT 6.9 10^3/uL (4.0-10.0)
[2020-09-04] MEDS: ASCORBIC ACID 500 MG TAB PO SCH (09:40)
[2020-09-04] MEDS: TAMSULOSIN 0.4 MG CAP PO SCH (09:40)
[2020-09-04] MEDS: CYANOCOBALAMIN 500 MCG TAB PO SCH (09:40)
[2020-09-04] MEDS: SENOKOT S TAB PO SCH ×2 (09:40→21:17)
[2020-09-04] MEDS: PANTOPRAZOLE 40MG VIAL (C9113 PER 1) IV SCH ×2 (09:40→21:17)
[2020-09-04] MEDS: ASPIRIN 81 MG ENTERIC TAB PO SCH (09:40)
[2020-09-04] MEDS: FERROUS SULFATE 325MG TAB PO SCH (09:40)
[2020-09-04 09:58] LABS: MAGNESIUM LEVEL 1.8 MG/DL (1.8-2.4); PHOSPHORUS LEVEL 2.8 MG/DL (2.5-4.9)
[2020-09-04 09:59] LABS: BLOOD UREA NITROGEN 25 MG/DL (7-18); CARBON DIOXIDE LEVEL 26 MEQ/L (21-32); CHLORIDE LEVEL 101 MEQ/L (98-107); CREATININE FOR GFR 1.49 MG/DL (0.70-1.30); GLOMERULAR FILTRATION RATE 47.7 (>35); GLUCOSE, FASTING 105 MG/DL (70-100); POTASSIUM SERUM 3.5 MEQ/L (3.5-5.1); SODIUM LEVEL 136 MEQ/L (136-145)
[2020-09-04 10:00] LABS: ALBUMIN 2.4 GM/DL (3.2-5.2); ALT/SGPT 11 U/L (12-78); BILIRUBIN,TOTAL 0.7 MG/DL (0.2-1.0); CK-MB VALUE MASS 1.3 NG/ML (<3.6); CPK CREATINE PHOSPHOKINASE 50 U/L (39-308); TOTAL PROTEIN 6.1 GM/DL (6.4-8.2); TROPONIN I < 0.02 NG/ML (< 0.10)
--- NOTE | 2020-09-04 10:43 | IPNPDOC ---
Text Note Date of Service The patient was seen on 09/04/20. NOTE Subjective: Patient seen and examined at bedside. No acute overnight events reported. Patient has no new medical complaints this morning. He states he is constipated later in the morning he developed sustained V. tach and was hypotensive but asymptomatic. He received 300 mg amiodarone IV 1 and shocked once. On further discussion, he did note possibly some shortness of breath but was otherwise asymptomatic. Objective: VITAL SIGNS:see below GENERAL APPEARANCE: NAD, lying comfortably in bed, chronically ill appearing HEENT: (+)JVD moist mm no carotid bruits, stridor, or cervical LAD CARDIOVASCULAR: +S1S2, RRR LUNGS: CTA B/L, diminished breath sounds ABDOMEN: + bs soft nt nd EXTREMITIES: 1+ pitting edema b/l LE ASSESSMENT: 84y/o male with PMHx significant for CAD/[place] with 2 drug-eluting stents to LAD 12/2014, and further PCI September 2019, Moderate pulmonary hypertension, COPD/chronic hypoxic respiratory failure on 2.5L O2 at night, HFpEF LVEF 75%, HTN, impaired fasting glucose, dyslipidemia, Peripheral arterial disease,AAA EVAR 05/2015, s/pright iliac artery aneurysm/ femoral artery mynx closure 02/2019, GI bleed s/p rbc transfusion, adenomatous polyp, aspiration pneumonia after EGD, Fatty liver, Right UE DVT 2014, presents to the ER with almost a week of incr easing bilateral lower extremity edema, unable to put his shoes on, and 2-3 days of rhinorrhea, PND, 2pillow orthopnea, MORALES, wet cough without chest pain, pressure, tightness, lightheadedness, dizziness, epigastric pain, nausea, vomiting, diaphoresis, fever, chills, or sense of impending doom. He denied changes in appetite, sleep, abdominal pain, dysuria, urgency, frequency, hematemesis, coffee-ground emesis, BRBPR, melena, or black tarry stools. He has been having brown stools and usually takes iron supplements. In the ER, he was found to have anemia with hemoglobin of 7.2 from baseline of 11.1 on 01/23, respiratory panel:(+)human rhinovirus, enterovirus, negative for COVID-19. EKG: no acute ischemic changes. CXR: bilateral infiltrates. Hospitalist was asked to admit for CHF exacerbation, symptomatic anemia, and viral URI. Hospital stay complicated today with unstable VT this morning s/p synchronized cardioversion, and sustained VT again in the afternoon, responded #unstable VT - s/p shock/amio 300 IV x1 - resolved - now NSR, normotensive - extensive discussion at bedside regarding code status - decided for DNR/DNI - discussed with cardiology - assistance appreciated - recommendations to use amio only IV bolus, as needed, and to increase PO to QID dosing #Acute Diastolic CHF exacerbation -strict i/o -weigh daily -2liter fluid restriction -s/p iv lasix - now discontinued -2d echo - ECG/card markers unrevealing - telemetry monitoring #Viral URI - Supportive care -respiratory panel negative for covid-19 -Human rhinovirus/enterovirus on Respiratory panel #Symptomatic Anemia -history of gi bleed, rbc transfusion, post-EGD aspiration pneumonia, colonoscopy-adenomatous polyps -s/p 3PRBC -serial H/H -continue iron, vitamin c -check iron studies, retic count, peripheral smear, stool for blood - last colonoscopy was 5 years ago - he states he is due in Oct 2020 for his next scope -IV PPI, carafate #Moderate Pulmonary HTN -complicating care #Hx CAD/[place] - s/p PCI 2014, Sep 2018 - Gene Longoria -continue home meds - metoprolol, statin, ASA/plavix held due to symptomatic anemia r/o gi bleed -telemetry -monitor electrolytes -on chronic amiodarone #PAD -continue statin -hold ASA and plavix due to anemia -if hemoccult negative, resume #AAA repair/Femoral mynx closure -stable #Impaired fasting glucose #h/o GI bleed while on xarelto -Hx EGD with post op aspiration #h/o Adenomatous polyps -if recurrent anemia after rbc transfusion, and chf is resolved, will need endoscopy. #Light chain disease -elevated kappa/lambda chains -negative SPEP #COPD with 2.5liters o2 qhs -resume inhalers #Hypothyroidism -synthroid - check tsh #DVT prophylaxis - mechanical Dispo: very poor prognosis, discussed with niece at length (HCP). Patient and HCP in full understanding of poor prognosis. VS,Fishbone, I+O VS, Fishbone, I+O Laboratory Tests 09/03/20 18:05 09/04/20 05:04 09/04/20 09:08 Vital Signs Date Time Temp Pulse Resp B/P (MAP) Pulse Ox O2 Delivery O2 Flow Rate FiO2 09/04/20 09:00 71 108/58 09/04/20 08:00 97.0 18 94 Nasal Cannula 2.0 I&O- Last 24 Hours up to 6 AM 09/04/20 06:00 Intake Total 900 ml Output Total 2550 ml Balance -1650 ml ALEENA FIGUEROA MD Sep 04, 2020 10:42
[2020-09-04] MEDS ORDERED: MAG SULF 1GM/100ML (MAG RUN) 1 GM in IV 1 EA IV ONE (10:45)
[2020-09-04] MEDS: NS 1,000 ML IV SCH ×2 (11:00→16:48)
--- NOTE | 2020-09-04 18:12 | ECGEPIP ---
[facility] Test Date: 2020-09-04 Pat Name: COOPER PARTIDA Department: Room: [place] [address] Gender: Male Policy Writer: : 1935 Requested By: ALEENA Rasheed Order Number: [id number] Reading MD: Oz Quesada Measurements Intervals [place] Rate: 72 P: 187 [place]: 135 QRS: 25 QRSD: 144 T: 46 QT: 452 QTc: 496 Interpretive Statements Sinus bradycardia with PVC and PACs Low QRS complex voltage in the limb leads Right bundle branch block No significant change when compared to prior tracing of 09/02/2020, except for f faster heart rate Electronically Signed on 09-04-2020 18:12:01 EST by Oz Quesada
[2020-09-04 18:17] LABS: HEMATOCRIT 32.7 % (42.0-52.0); HEMOGLOBIN 9.9 g/dl (13.5-17.5)
[2020-09-04] MEDS: TIOTROPIUM INHALER/CAPSULE (SPIRIVA) INH SCH (19:33)
[2020-09-04] MEDS: SIMVASTATIN 20 MG TAB PO SCH (21:17)
[2020-09-05] VITALS: BP 119/68
[2020-09-05] MEDS: AMIODARONE 200 MG TAB (PACERONE) PO SCH ×4 (00:17→17:00)
[2020-09-05] MEDS: NS 1,000 ML IV SCH (03:40)
[2020-09-05 04:00] VITALS: BP 130/59
[2020-09-05 05:40] LABS: BASO % 0.4 % (0.0-1.0); EOS # 0.1 10^3/uL (0.0-0.5); EOS % 1.6 % (0.0-3.0); HEMATOCRIT 30.4 % (42.0-52.0); HEMOGLOBIN 9.1 g/dl (13.5-17.5); LYMPH # 0.4 10^3/uL (1.5-5.0); MEAN CORPUSCULAR HEMOGLOBIN 29.1 pg (27.0-33.0); MEAN CORPUSCULAR HGB CONC 29.9 g/dl (32.0-36.5); MEAN CORPUSCULAR VOLUME 97.1 fl (80.0-96.0); MONO # 0.7 10^3/uL (0.0-0.8); MONO % 14.6 % (0.0-5.0); NEUTROPHILS # 3.7 10^3/uL (1.5-8.5); PLATELET COUNT, AUTOMATED 238 10^3/uL (150-450); RED BLOOD COUNT 3.13 10^6/uL (4.30-6.10)
[2020-09-05] MEDS: LEVOTHYROXINE 75MCG TABLET (0.075MG) PO SCH (05:48)
[2020-09-05 06:05] LABS: BLOOD UREA NITROGEN 17 MG/DL (7-18); CALCIUM LEVEL 7.8 MG/DL (8.8-10.2); CARBON DIOXIDE LEVEL 29 MEQ/L (21-32); CHLORIDE LEVEL 105 MEQ/L (98-107); CREATININE FOR GFR 1.01 MG/DL (0.70-1.30); GLOMERULAR FILTRATION RATE > 60.0 (>35); GLUCOSE, FASTING 82 MG/DL (70-100); POTASSIUM SERUM 3.3 MEQ/L (3.5-5.1); SODIUM LEVEL 140 MEQ/L (136-145)
[2020-09-05 08:00] VITALS: BP 137/62
[2020-09-05] MEDS: CYANOCOBALAMIN 500 MCG TAB PO SCH (08:05)
[2020-09-05] MEDS: ASPIRIN 81 MG ENTERIC TAB PO SCH (08:05)
[2020-09-05] MEDS: SUCRALFATE 1 GM TAB PO SCH ×4 (08:05→20:24)
[2020-09-05] MEDS: SENOKOT S TAB PO SCH ×2 (08:05→20:24)
[2020-09-05] MEDS: TAMSULOSIN 0.4 MG CAP PO SCH (08:05)
[2020-09-05] MEDS: METOPROLOL TART 25 MG TABLET PO SCH ×2 (08:06→20:24)
[2020-09-05] MEDS: FERROUS SULFATE 325MG TAB PO SCH (08:06)
[2020-09-05] MEDS: PANTOPRAZOLE 40MG VIAL (C9113 PER 1) IV SCH ×2 (08:06→20:24)
[2020-09-05] MEDS: ASCORBIC ACID 500 MG TAB PO SCH (08:06)
[2020-09-05] MEDS: KCL 10MEQ/100ML SWI (KRUN) 10 MEQ in IV 1 EA IV SCH ×6 (08:46→14:35)
--- NOTE | 2020-09-05 09:14 | IPN ---
PROGRESS NOTE DATE: 09/05/2020 SUBJECTIVE: "Jim" is a patient I have taken care of for over 25 years. He is admitted with GI bleed, acute blood loss anemia. He has a history of congestive heart failure with preserved ejection fraction, torsade and ventricular tachycardia, extensive vascular disease including coronary artery disease, abdominal aortic aneurysm repair, iliac artery aneurysm repair. He was admitted with a GI bleed, passing melena and anemic. He had to be transfused. Yesterday he went into unstable ventricular tachycardia, required synchronized cardioversion, sustained V-tach again in the afternoon and was also cardioverted. At this point, he has made himself a DNR/DNI. We discussed this at length today. He specifically does not want to be cardioverted again, does not want intubation or CPR. PHYSICAL EXAMINATION: VITAL SIGNS: Blood pressure 132/62, pulse 64, 97.9 degrees. GENERAL APPEARANCE: He is alert, conversant, in no distress. We had a good conversation. Fully oriented. HEENT: Unremarkable. LUNGS: Decreased breath sounds, rales at both bases. HEART: Regular rate and rhythm. There is a 1/6 systolic ejection murmur. ABDOMEN: Distended, slightly tender. Bowel sounds are present. EXTREMITIES: No clubbing or cyanosis. LABS: White count 5, hemoglobin 9.1 which is down a bit from yesterday from 9.9 (given IV fluids overnight), platelets 238,000. Sodium 140, potassium 3.3, BUN 17, creatinine 1.0, glucose 82. IMPRESSION/PLAN: 1. GI bleed with acute blood loss anemia. It is probably an upper GI bleed and no sign of recurrence. Hemoglobin was down a bit today but he was given IV saline overnight. He is on IV Protonix. He is not in any medical condition to have endoscopy, it is too high risk at this point. Daily CBCs have been ordered. 2. Ventricular tachycardia requiring cardioversion x2, amiodarone intravenously. He now a DNR/DNI. He does not want repeat cardioversion. This was discussed with his nurse today as well. His prognosis is poor. I agree with his DNR/DNI status. 3. Hypokalemia, IV potassium runs have been ordered x6. Daily labs have been ordered. 4. Peripheral arterial disease/history of abdominal aortic aneurysm endovascular repair. He is on aspirin and Plavix as an outpatient which we are holding for now. This will need to be restarted after discharge. 5. COPD, uses oxygen 2.5 liters at bedtime as an outpatient.
--- NOTE | 2020-09-05 10:57 | ECHO ---
DATE OF PROCEDURE: 09/04/2020 Age: 84 Gender: Male Height: 72 inches Weight: 174 pounds Body surface area: 2.0 m2 PATIENT LOCATION: Inpatient [address] [place], Room 3224. REFERRING PHYSICIAN: Blessing Elliott MD. INDICATION: Congestive heart failure (CHF). MEASUREMENTS: 2D Measurements: RV 4.8 cm LV 4.4 cm Septum 1.3 cm Posterior wall 1.3 cm Aortic Root 4.3 cm LA 4.4 cm LVEF 65-70% Doppler Measurements: AV 2.63 m/s LVOT 0.8 m/s Mean AV systolic gradient 17 mmHg Dimensionless index 0.31 MV-E 40, A 105, E/A ratio 0.4 Early mitral deceleration time 280 msec E prime medial 4, A prime medial 8.2, E prime lateral 5.2 Average E/E prime ratio 8.7/PCWP 12.7 mmHg RVSP 74 mmHg COMMENTS: Sinus bradycardia with first-degree AV block and right bundle branch block. Occasional PVC. Technically challenging study in light of the patients body habitus/pulmonary disease, but diagnostically useful information was still obtained. Mild concentric left ventricular hypertrophy with normal wall motion. At least mildly dilated left atrium with grade 1 LV diastolic dysfunction, but currently normal estimated mean left atrial pressure. At least [id number] dilated right ventricle with slight right ventricle free wall hypokinesis and Doppler evidence of severe pulmonary hypertension. At least moderately dilated right atrium. Mildly dilated aortic root. Moderately severe thickening of the aortic valve with Doppler evidence of mild to at most moderate aortic stenosis and moderate aortic insufficiency. Moderately severe mitral annular calcification without inflow tract obstruction and no significant mitral insufficiency. Normal appearing tricuspid valve with at least moderate tricuspid insufficiency. Unable to detect intracardiac mass or pericardial effusion. A preliminary report of this study was relayed to Dr. Pritesh Salguero, hospitalist covering the service. In light of the observed severe pulmonary hypertension and right heart failure, this patients prognosis is quite guarded. JORDYND
[2020-09-05 12:00] VITALS: BP 132/68
[2020-09-05 16:00] VITALS: BP 109/61
[2020-09-05] MEDS: COMBIVENT RESPIMAT 100-20MCG INHALER 4GM INH PRN (17:06)
[2020-09-05 20:00] VITALS: BP 142/65
[2020-09-05] MEDS: TIOTROPIUM INHALER/CAPSULE (SPIRIVA) INH SCH (20:12)
[2020-09-05] MEDS: SIMVASTATIN 20 MG TAB PO SCH (20:24)
[2020-09-06] VITALS: BP 152/66
[2020-09-06] MEDS: AMIODARONE 200 MG TAB (PACERONE) PO SCH ×4 (00:18→16:49)
[2020-09-06 04:00] VITALS: BP 144/64
[2020-09-06 05:40] LABS: BASO % 0.7 % (0.0-1.0); EOS # 0.1 10^3/uL (0.0-0.5); EOS % 2.6 % (0.0-3.0); HEMOGLOBIN 9.7 g/dl (13.5-17.5); LYMPH # 0.4 10^3/uL (1.5-5.0); LYMPH % 8.1 % (24.0-44.0); MEAN CORPUSCULAR HEMOGLOBIN 29.8 pg (27.0-33.0); MEAN CORPUSCULAR HGB CONC 30.3 g/dl (32.0-36.5); MEAN CORPUSCULAR VOLUME 98.2 fl (80.0-96.0); MONO # 0.7 10^3/uL (0.0-0.8); MONO % 13.4 % (0.0-5.0); NEUTROPHILS # 4.1 10^3/uL (1.5-8.5); NEUTROPHILS % 74.7 % (36.0-66.0); PLATELET COUNT, AUTOMATED 221 10^3/uL (150-450); RED BLOOD COUNT 3.26 10^6/uL (4.30-6.10); WHITE BLOOD COUNT 5.5 10^3/uL (4.0-10.0)
[2020-09-06 06:08] LABS: BLOOD UREA NITROGEN 16 MG/DL (7-18); CALCIUM LEVEL 7.8 MG/DL (8.8-10.2); CARBON DIOXIDE LEVEL 27 MEQ/L (21-32); CHLORIDE LEVEL 106 MEQ/L (98-107); CREATININE FOR GFR 0.94 MG/DL (0.70-1.30); GLOMERULAR FILTRATION RATE > 60.0 (>35); GLUCOSE, FASTING 80 MG/DL (70-100); MAGNESIUM LEVEL 1.9 MG/DL (1.8-2.4); POTASSIUM SERUM 3.7 MEQ/L (3.5-5.1); SODIUM LEVEL 138 MEQ/L (136-145)
[2020-09-06] MEDS: LEVOTHYROXINE 75MCG TABLET (0.075MG) PO SCH (06:09)
[2020-09-06 08:07] VITALS: BP 165/74
--- NOTE | 2020-09-06 09:09 | IPN ---
PROGRESS NOTE DATE: 09/06/2020 SUBJECTIVE: Don had an uneventful day, or at least he did not need to be cardioverted yesterday, so he is optimistic about that. Denies any chest pain, shortness of breath or palpitations. Per telemetry nurses, he did not have any sustained V-tach overnight. PHYSICAL EXAMINATION: VITAL SIGNS: Afebrile. Vital signs stable. Blood pressure 144/64. LUNGS: Clear. HEART: Regular rhythm. ABDOMEN: Soft, nontender. No masses. EXTREMITIES: No edema. Moves arms and legs with equal strength. LABORATORY DATA: White count 5.5, hemoglobin 9.7, platelets 220,000. Sodium 138, potassium 3.7, BUN 16, creatinine 0.9, glucose 80. IMPRESSION: 1. GI bleed, acute blood loss anemia. Probably upper GI bleed, no sign of recurrent, on IV Protonix, following daily CBCs. 2. V-tach, requiring cardioversion x2. He is on amiodarone. We replaced the potassium yesterday, he has had no recurrent arrhythmias. 3. History of vascular disease including peripheral arterial disease and abdominal aortic aneurysm repair. His aspirin and Plavix are on hold. 4. COPD. He is stable. He is on supplemental oxygen 2.5 liters at home. 5. Code Status: He is a DNR/DNI.
[2020-09-06] MEDS: PANTOPRAZOLE 40MG VIAL (C9113 PER 1) IV SCH ×2 (09:14→20:24)
[2020-09-06] MEDS: ASPIRIN 81 MG ENTERIC TAB PO SCH (09:15)
[2020-09-06] MEDS: FERROUS SULFATE 325MG TAB PO SCH (09:15)
[2020-09-06] MEDS: SENOKOT S TAB PO SCH (09:15)
[2020-09-06] MEDS: KCL 10MEQ/100ML SWI (KRUN) 10 MEQ in IV 1 EA IV SCH ×4 (09:15→15:33)
[2020-09-06] MEDS: TAMSULOSIN 0.4 MG CAP PO SCH (09:15)
[2020-09-06] MEDS: CYANOCOBALAMIN 500 MCG TAB PO SCH (09:15)
[2020-09-06] MEDS: SUCRALFATE 1 GM TAB PO SCH ×4 (09:15→20:22)
[2020-09-06] MEDS: ASCORBIC ACID 500 MG TAB PO SCH (09:16)
[2020-09-06] MEDS: METOPROLOL TART 25 MG TABLET PO SCH ×2 (09:16→20:24)
[2020-09-06 12:00] VITALS: BP 145/63
[2020-09-06] MEDS ORDERED: KCL 10MEQ/100ML SWI (KRUN) 10 MEQ in IV 1 EA IV ONE (15:15)
[2020-09-06 16:00] VITALS: BP 120/60
[2020-09-06] MEDS: MIRALAX *UNIT DOSE* 17GM PACKET PO PRN (16:49)
[2020-09-06 20:00] VITALS: BP 147/70
[2020-09-06] MEDS: SIMVASTATIN 20 MG TAB PO SCH (20:22)
[2020-09-06] MEDS: TIOTROPIUM INHALER/CAPSULE (SPIRIVA) INH SCH (21:29)
[2020-09-07] VITALS: BP 153/70
[2020-09-07] MEDS: AMIODARONE 200 MG TAB (PACERONE) PO SCH ×4 (00:51→17:34)
[2020-09-07 04:00] VITALS: BP 154/73
[2020-09-07] MEDS: LEVOTHYROXINE 75MCG TABLET (0.075MG) PO SCH (06:10)
[2020-09-07 08:00] VITALS: BP 144/69
[2020-09-07 08:35] LABS: BASO % 0.5 % (0.0-1.0); EOS # 0.1 10^3/uL (0.0-0.5); EOS % 2.2 % (0.0-3.0); HEMATOCRIT 32.2 % (42.0-52.0); HEMOGLOBIN 9.7 g/dl (13.5-17.5); LYMPH # 0.4 10^3/uL (1.5-5.0); LYMPH % 6.4 % (24.0-44.0); MEAN CORPUSCULAR HEMOGLOBIN 29.4 pg (27.0-33.0); MEAN CORPUSCULAR HGB CONC 30.1 g/dl (32.0-36.5); MEAN CORPUSCULAR VOLUME 97.6 fl (80.0-96.0); MONO # 0.8 10^3/uL (0.0-0.8); MONO % 12.6 % (0.0-5.0); NEUTROPHILS # 4.9 10^3/uL (1.5-8.5); NEUTROPHILS % 77.8 % (36.0-66.0); PLATELET COUNT, AUTOMATED 218 10^3/uL (150-450); WHITE BLOOD COUNT 6.3 10^3/uL (4.0-10.0)
[2020-09-07] MEDS: TAMSULOSIN 0.4 MG CAP PO SCH (08:50)
[2020-09-07] MEDS: PANTOPRAZOLE 40MG VIAL (C9113 PER 1) IV SCH (08:50)
[2020-09-07] MEDS: SUCRALFATE 1 GM TAB PO SCH ×4 (08:50→21:11)
[2020-09-07] MEDS: ASPIRIN 81 MG ENTERIC TAB PO SCH (08:50)
[2020-09-07] MEDS: ASCORBIC ACID 500 MG TAB PO SCH (08:51)
[2020-09-07] MEDS: FERROUS SULFATE 325MG TAB PO SCH (08:51)
[2020-09-07] MEDS: CYANOCOBALAMIN 500 MCG TAB PO SCH (08:51)
[2020-09-07] MEDS: METOPROLOL TART 25 MG TABLET PO SCH ×2 (08:51→21:11)
[2020-09-07 09:04] LABS: BLOOD UREA NITROGEN 16 MG/DL (7-18); CALCIUM LEVEL 7.6 MG/DL (8.8-10.2); CARBON DIOXIDE LEVEL 27 MEQ/L (21-32); CHLORIDE LEVEL 106 MEQ/L (98-107); CREATININE FOR GFR 0.86 MG/DL (0.70-1.30); GLOMERULAR FILTRATION RATE > 60.0 (>35); GLUCOSE, FASTING 79 MG/DL (70-100); MAGNESIUM LEVEL 1.8 MG/DL (1.8-2.4); POTASSIUM SERUM 4.1 MEQ/L (3.5-5.1); SODIUM LEVEL 137 MEQ/L (136-145)
[2020-09-07] MEDS: COMBIVENT RESPIMAT 100-20MCG INHALER 4GM INH PRN (09:28)
--- NOTE | 2020-09-07 09:59 | IPN ---
PROGRESS NOTE DATE: 09/07/2020 SUBJECTIVE: He feels a little tired today. He has had no recurrence of his ventricular tachycardia since we have been more aggressively addressing his hypokalemia. Denies chest pain or shortness of breath. His bowels are better. He has less abdominal pain and distention. OBJECTIVE: VITAL SIGNS: Blood pressure 144/69, afebrile, O2 saturation 95%. INTAKE AND OUTPUT: Has been about even over the last few days. GENERAL APPEARANCE: Alert, conversant, in no distress. NECK: No JVD. LUNGS: Clear. Decreased breath sounds. HEART: Regular rhythm. ABDOMEN: Soft, nondistended, and nontender. EXTREMITIES: Trace peripheral edema. LABORATORY DATA: Sodium 137, potassium 4.1, BUN 16, creatinine 0.8. White count 6.3, hemoglobin 9.7, platelets 218,000. IMPRESSION: 1. Gastrointestinal (GI) bleed with acute blood loss anemia. He is still on IV Protonix. His hemoglobin has been stable. We will change him to p.o. Protonix at this point. Too high a risk for endoscopy. CBCs have been stable with no sign of recurrence. 2. Ventricular tachycardia requiring cardioversion x2. Amiodarone intravenously. He is DO NOT RESUSCITATE / DO NOT INTUBATE (DNR/DNI), which he has reaffirmed to me. He has had no recurrence with more aggressive attention to his electrolyte abnormalities, particularly his hypokalemia. 3. Hypokalemia. I would like to see his potassium well within normal range. He is prone to ventricular tachycardia if it gets low. 4. Chronic obstructive pulmonary disease (COPD), stable on his nocturnal oxygen. 5. Vascular disease including peripheral arterial disease and history of abdominal aortic aneurysm. He is off his aspirin and Plavix, which he uses as an outpatient. These need to be restarted as an outpatient. I will be seeing him in the office and at some point; we can restart this when his risk of re-bleeding is less.
[2020-09-07 12:00] VITALS: BP 111/53
[2020-09-07 16:00] VITALS: BP 131/69
[2020-09-07 20:00] VITALS: BP 129/63
[2020-09-07] MEDS: TIOTROPIUM INHALER/CAPSULE (SPIRIVA) INH SCH (20:05)
[2020-09-07] MEDS: SIMVASTATIN 20 MG TAB PO SCH (21:11)
[2020-09-07] MEDS: PANTOPRAZOLE 40MG TAB (PROTONIX) PO SCH (21:11)
[2020-09-07] MEDS: SENOKOT S TAB PO PRN (21:20)
[2020-09-07] MEDS: MIRALAX *UNIT DOSE* 17GM PACKET PO PRN (21:20)
[2020-09-08] VITALS: BP 152/69
[2020-09-08] MEDS: AMIODARONE 200 MG TAB (PACERONE) PO SCH ×4 (00:52→18:07)
[2020-09-08 04:00] VITALS: BP 148/66
[2020-09-08] MEDS: LEVOTHYROXINE 75MCG TABLET (0.075MG) PO SCH (05:20)
[2020-09-08 05:51] LABS: BASO % 0.6 % (0.0-1.0); EOS # 0.1 10^3/uL (0.0-0.5); EOS % 2.5 % (0.0-3.0); HEMATOCRIT 31.7 % (42.0-52.0); HEMOGLOBIN 9.3 g/dl (13.5-17.5); LYMPH # 0.4 10^3/uL (1.5-5.0); LYMPH % 8.6 % (24.0-44.0); MEAN CORPUSCULAR HEMOGLOBIN 28.9 pg (27.0-33.0); MEAN CORPUSCULAR HGB CONC 29.3 g/dl (32.0-36.5); MEAN CORPUSCULAR VOLUME 98.4 fl (80.0-96.0); MONO # 0.6 10^3/uL (0.0-0.8); NEUTROPHILS # 3.6 10^3/uL (1.5-8.5); NEUTROPHILS % 75.9 % (36.0-66.0); PLATELET COUNT, AUTOMATED 194 10^3/uL (150-450); RED BLOOD COUNT 3.22 10^6/uL (4.30-6.10); WHITE BLOOD COUNT 4.8 10^3/uL (4.0-10.0)
[2020-09-08 06:18] LABS: BLOOD UREA NITROGEN 16 MG/DL (7-18); CALCIUM LEVEL 7.8 MG/DL (8.8-10.2); CARBON DIOXIDE LEVEL 25 MEQ/L (21-32); CHLORIDE LEVEL 106 MEQ/L (98-107); GLOMERULAR FILTRATION RATE > 60.0 (>35); GLUCOSE, FASTING 79 MG/DL (70-100); MAGNESIUM LEVEL 1.6 MG/DL (1.8-2.4); POTASSIUM SERUM 3.9 MEQ/L (3.5-5.1); SODIUM LEVEL 137 MEQ/L (136-145)
[2020-09-08 08:00] VITALS: BP_SYST 152; BP_SYST 52; BP_DIAS 70
[2020-09-08] MEDS: ASPIRIN 81 MG ENTERIC TAB PO SCH (09:00)
[2020-09-08] MEDS: TAMSULOSIN 0.4 MG CAP PO SCH (09:00)
[2020-09-08] MEDS ORDERED: MAG SULF 1GM/100ML (MAG RUN) 1 GM in IV 1 EA IV ONE (09:00)
[2020-09-08] MEDS: POTASSIUM CHLORIDE 10 MEQ SR TABLET PO SCH ×2 (09:01→20:18)
[2020-09-08] MEDS: ASCORBIC ACID 500 MG TAB PO SCH (09:01)
[2020-09-08] MEDS: METOPROLOL TART 25 MG TABLET PO SCH ×2 (09:02→20:19)
[2020-09-08] MEDS: SUCRALFATE 1 GM TAB PO SCH ×4 (09:03→20:18)
[2020-09-08] MEDS: FERROUS SULFATE 325MG TAB PO SCH (09:03)
[2020-09-08] MEDS: PANTOPRAZOLE 40MG TAB (PROTONIX) PO SCH ×2 (09:03→20:18)
[2020-09-08] MEDS: CYANOCOBALAMIN 500 MCG TAB PO SCH (09:04)
[2020-09-08] MEDS ORDERED: FUROSEMIDE 20MG/2ML VIAL (J1940) IV ONE (11:00)
[2020-09-08 12:00] VITALS: BP 106/52
[2020-09-08 16:00] VITALS: BP 134/63
--- NOTE | 2020-09-08 16:06 | IPN ---
PROGRESS NOTE DATE: 09/08/2020 SUBJECTIVE: Iván is doing well. He has a little bit of edema in his feet throughout has developed. He has had no recurrence of GI bleeding. He has had no recurrence of ventricular tachycardia presently. He really needs to try to keep his magnesium and potassium within normal range to avoid recurrence of this. No chest pain or shortness of breath. He is looking forward to watching the [employer] game this afternoon. PHYSICAL EXAMINATION: VITAL SIGNS: Blood pressure 140/66, pulse 66, temperature 97 degrees. GENERAL APPEARANCE: Alert, conversant, no distress. LUNGS: Clear. HEART: Regular rate and rhythm. No murmur. ABDOMEN: Soft, nontender, nondistended. No masses. EXTREMITIES: Trace to 1+ peripheral edema. LABS: White count 4.8, hemoglobin 9.3, platelets 194. Sodium 139, potassium 3.9, BUN 16, creatinine 0.9, glucose 79. IMPRESSION/PLAN: 1. Lower extremity edema. We will give him a single dose of intravenous furosemide today to help mobilize this. Watch his potassium and magnesium closely. 2. Gastrointestinal bleed with acute blood loss anemia. No sign of recurrence. Stable hemoglobin. Risk for him to have an endoscopy is too high. 3. Recurrent ventricular tachycardia status post cardioversion times two and Amiodarone therapy. We have been trying to maintain normal potassium and magnesium levels. No recurrence of ventricular tachycardia since then. 4. COPD, stable. He is on nocturnal oxygen. 5. Peripheral vascular disease. He has been on Aspirin and Plavix as an outpatient. This is on hold. It will be restarted when his risk of re-bleeding is lower.
[2020-09-08] MEDS: MIRALAX *UNIT DOSE* 17GM PACKET PO PRN (18:07)
[2020-09-08] MEDS: SENOKOT S TAB PO PRN (18:07)
[2020-09-08 20:00] VITALS: BP 140/64
[2020-09-08] MEDS: SIMVASTATIN 20 MG TAB PO SCH (20:18)
[2020-09-08] MEDS: TIOTROPIUM INHALER/CAPSULE (SPIRIVA) INH SCH (22:17)
[2020-09-09] VITALS: BP 147/67
[2020-09-09 04:00] VITALS: BP 131/60
[2020-09-09 05:21] LABS: BASO % 0.6 % (0.0-1.0); EOS # 0.2 10^3/uL (0.0-0.5); EOS % 3.3 % (0.0-3.0); HEMATOCRIT 32.1 % (42.0-52.0); HEMOGLOBIN 9.7 g/dl (13.5-17.5); LYMPH # 0.5 10^3/uL (1.5-5.0); LYMPH % 8.9 % (24.0-44.0); MEAN CORPUSCULAR HGB CONC 30.2 g/dl (32.0-36.5); MEAN CORPUSCULAR VOLUME 99.4 fl (80.0-96.0); MONO # 0.6 10^3/uL (0.0-0.8); MONO % 10.6 % (0.0-5.0); NEUTROPHILS % 76.4 % (36.0-66.0); PLATELET COUNT, AUTOMATED 204 10^3/uL (150-450); RED BLOOD COUNT 3.23 10^6/uL (4.30-6.10); WHITE BLOOD COUNT 5.2 10^3/uL (4.0-10.0)
[2020-09-09 05:47] LABS: BLOOD UREA NITROGEN 15 MG/DL (7-18); CALCIUM LEVEL 7.9 MG/DL (8.8-10.2); CARBON DIOXIDE LEVEL 28 MEQ/L (21-32); CHLORIDE LEVEL 107 MEQ/L (98-107); CREATININE FOR GFR 0.98 MG/DL (0.70-1.30); GLOMERULAR FILTRATION RATE > 60.0 (>35); GLUCOSE, FASTING 106 MG/DL (70-100); POTASSIUM SERUM 4.4 MEQ/L (3.5-5.1); SODIUM LEVEL 138 MEQ/L (136-145)
[2020-09-09] MEDS: AMIODARONE 200 MG TAB (PACERONE) PO SCH ×4 (06:00→17:25)
[2020-09-09] MEDS: LEVOTHYROXINE 75MCG TABLET (0.075MG) PO SCH (06:00)
[2020-09-09] MEDS: SUCRALFATE 1 GM TAB PO SCH ×4 (07:38→22:39)
[2020-09-09 08:00] VITALS: BP 153/67
[2020-09-09] MEDS: MIRALAX *UNIT DOSE* 17GM PACKET PO PRN (08:52)
[2020-09-09] MEDS: TAMSULOSIN 0.4 MG CAP PO SCH (08:52)
[2020-09-09] MEDS: ASPIRIN 81 MG ENTERIC TAB PO SCH (08:52)
[2020-09-09] MEDS: POTASSIUM CHLORIDE 10 MEQ SR TABLET PO SCH ×2 (08:52→22:38)
[2020-09-09] MEDS: METOPROLOL TART 25 MG TABLET PO SCH ×2 (08:53→22:37)
[2020-09-09] MEDS: CYANOCOBALAMIN 500 MCG TAB PO SCH (08:53)
[2020-09-09] MEDS: FERROUS SULFATE 325MG TAB PO SCH (08:53)
[2020-09-09] MEDS: PANTOPRAZOLE 40MG TAB (PROTONIX) PO SCH ×2 (08:53→22:38)
[2020-09-09] MEDS: ASCORBIC ACID 500 MG TAB PO SCH (08:53)
--- NOTE | 2020-09-09 09:49 | IPN ---
PROGRESS NOTE DATE: 09/09/2020 SUBJECTIVE: He feels well. He looks quite good. Spent most of the visit talking about the [employer] game yesterday. He still has some lower extremity edema. It is better after I gave him a dose of furosemide yesterday and he had a bit of diuresis from that. No recurrence of GI bleeding. Thinking about going home but he does not feel strong enough to do that and feels he needs some rehab. PHYSICAL EXAM: VITAL SIGNS: Blood pressure 153/67, pulse 56, afebrile, 96% O2 saturation on 1 liter. GENERAL APPEARANCE: Resting comfortably, no distress. HEENT: Unremarkable. LUNGS: Decreased breath sounds but clear. HEART: Regular rate and rhythm. ABDOMEN: Soft, nontender. No masses. EXTREMITIES: Trace peripheral edema. LABS: White count 5.2, hemoglobin 9.7, platelets 204. Sodium 138, potassium 4.4, BUN 15, creatinine 0.9, glucose 106. IMPRESSION AND PLAN: 1. Lower extremity edema. I will give him a dose of IV furosemide. Watch his magnesium and potassium closely. He gets ventricular tachycardia when these fall. 2. GI bleed with acute blood loss anemia. No recurrence of bleeding. He is at high risk for endoscopy so we have held off on this. 3. Peripheral arterial disease. His Aspirin and Plavix are on hold due to the GI bleed. 4. Current ventricular tachycardia requiring cardioversion and IV Amiodarone. He has had no recurrence since we have been pushing his potassium and magnesium doses both of which are normal today. 5. Case rounds today. We discussed his desire for rehab after discharge, probably subacute rehab.
[2020-09-09 12:00] VITALS: BP 132/66
[2020-09-09] MEDS: SENOKOT S TAB PO PRN (13:06)
[2020-09-09 15:56] VITALS: BP 143/65
[2020-09-09] MEDS: MOM 30ML SUSPENSION UDC PO PRN (17:25)
[2020-09-09] MEDS: TIOTROPIUM INHALER/CAPSULE (SPIRIVA) INH SCH (19:19)
[2020-09-09] MEDS: COMBIVENT RESPIMAT 100-20MCG INHALER 4GM INH PRN (19:19)
[2020-09-09 20:00] VITALS: BP 142/63
[2020-09-09] MEDS: SIMVASTATIN 20 MG TAB PO SCH (22:39)
[2020-09-10] VITALS: BP 142/65
[2020-09-10] MEDS: AMIODARONE 200 MG TAB (PACERONE) PO SCH ×5 (01:04→23:22)
[2020-09-10 04:00] VITALS: BP 135/62
[2020-09-10 05:19] LABS: HEMATOCRIT 32.2 % (42.0-52.0); HEMOGLOBIN 9.6 g/dl (13.5-17.5); MEAN CORPUSCULAR HEMOGLOBIN 29.2 pg (27.0-33.0); MEAN CORPUSCULAR HGB CONC 29.8 g/dl (32.0-36.5); MEAN CORPUSCULAR VOLUME 97.9 fl (80.0-96.0); PLATELET COUNT, AUTOMATED 222 10^3/uL (150-450); RED BLOOD COUNT 3.29 10^6/uL (4.30-6.10); WHITE BLOOD COUNT 6.9 10^3/uL (4.0-10.0)
[2020-09-10] MEDS: LEVOTHYROXINE 75MCG TABLET (0.075MG) PO SCH (05:39)
[2020-09-10] MEDS: MOM 30ML SUSPENSION UDC PO PRN (05:39)
[2020-09-10 05:49] LABS: BLOOD UREA NITROGEN 13 MG/DL (7-18); CALCIUM LEVEL 8.3 MG/DL (8.8-10.2); CARBON DIOXIDE LEVEL 26 MEQ/L (21-32); CHLORIDE LEVEL 108 MEQ/L (98-107); CREATININE FOR GFR 0.87 MG/DL (0.70-1.30); GLOMERULAR FILTRATION RATE > 60.0 (>35); GLUCOSE, FASTING 96 MG/DL (70-100); MAGNESIUM LEVEL 2.1 MG/DL (1.8-2.4); POTASSIUM SERUM 5.1 MEQ/L (3.5-5.1); SODIUM LEVEL 138 MEQ/L (136-145)
[2020-09-10 08:00] VITALS: BP 143/65
[2020-09-10] MEDS: FERROUS SULFATE 325MG TAB PO SCH (09:18)
[2020-09-10] MEDS: SUCRALFATE 1 GM TAB PO SCH ×4 (09:18→20:49)
[2020-09-10] MEDS: METOPROLOL TART 25 MG TABLET PO SCH ×2 (09:18→20:50)
[2020-09-10] MEDS: PANTOPRAZOLE 40MG TAB (PROTONIX) PO SCH ×2 (09:18→20:50)
[2020-09-10] MEDS: TAMSULOSIN 0.4 MG CAP PO SCH (09:18)
[2020-09-10] MEDS: ASCORBIC ACID 500 MG TAB PO SCH (09:18)
[2020-09-10] MEDS: ASPIRIN 81 MG ENTERIC TAB PO SCH (09:18)
[2020-09-10] MEDS: CYANOCOBALAMIN 500 MCG TAB PO SCH (09:18)
[2020-09-10] MEDS: POTASSIUM CHLORIDE 10 MEQ SR TABLET PO SCH (09:18)
[2020-09-10] MEDS ORDERED: FLEET ENEMA PR PRN (10:00)
--- NOTE | 2020-09-10 10:04 | IPN ---
PROGRESS NOTE DATE: 09/10/2020 SUBJECTIVE: Jim is doing well. No shortness of breath, chest pain, melena, or rectal bleeding. He has still been constipated. He is agreeing to enema today. OBJECTIVE: VITAL SIGNS: Afebrile. Vital signs stable with blood pressure 143/66. NECK: No JVD. LUNGS: Decreased breath sounds, but clear. HEART: Regular rate and rhythm with 1/6 systolic ejection murmur. ABDOMEN: More distended than yesterday. Good bowel sounds and nontender. EXTREMITIES: Trace peripheral edema. LABORATORY DATA: White count 6.9, hemoglobin 9.6, platelets 222,000. Sodium 138, potassium 5.1, BUN 13, creatinine 0.8, glucose 97. IMPRESSION: 1. Lower extremity edema. I will give another dose of intravenous (IV) furosemide following his electrolytes closely. Again ventricular tachycardia tends to occur when he is hypokalemic or hypomagnesemic. 2. Gastrointestinal (GI) bleed and acute blood loss anemia. No recurrence of this. 3. Constipation. Bowel care ordered. He agrees to enemas today. 4. Peripheral arterial disease. Aspirin and Plavix are on hold due to GI bleed. 5. Recurrent ventricular tachycardia requiring cardioversion and IV amiodarone. This has not recurred since we have been pushing the dose of potassium and magnesium. 6. Subacute rehab is planned, he will probably be stable for this by tomorrow.
[2020-09-10 12:00] VITALS: BP 132/61
[2020-09-10 15:55] VITALS: BP 152/67
[2020-09-10 20:00] VITALS: BP 118/57
[2020-09-10] MEDS: TIOTROPIUM INHALER/CAPSULE (SPIRIVA) INH SCH (20:13)
[2020-09-10] MEDS: SIMVASTATIN 20 MG TAB PO SCH (20:50)
[2020-09-11] VITALS: BP 126/62
[2020-09-11 04:00] VITALS: BP 128/60
[2020-09-11] MEDS: AMIODARONE 200 MG TAB (PACERONE) PO SCH ×2 (05:18→12:12)
[2020-09-11] MEDS: LEVOTHYROXINE 75MCG TABLET (0.075MG) PO SCH (05:18)
[2020-09-11 06:12] LABS: HEMATOCRIT 31.9 % (42.0-52.0); HEMOGLOBIN 9.7 g/dl (13.5-17.5); MEAN CORPUSCULAR HEMOGLOBIN 30.2 pg (27.0-33.0); MEAN CORPUSCULAR HGB CONC 30.4 g/dl (32.0-36.5); MEAN CORPUSCULAR VOLUME 99.4 fl (80.0-96.0); PLATELET COUNT, AUTOMATED 223 10^3/uL (150-450); RED BLOOD COUNT 3.21 10^6/uL (4.30-6.10); WHITE BLOOD COUNT 6.7 10^3/uL (4.0-10.0)
[2020-09-11 06:31] LABS: BLOOD UREA NITROGEN 16 MG/DL (7-18); CALCIUM LEVEL 7.9 MG/DL (8.8-10.2); CARBON DIOXIDE LEVEL 24 MEQ/L (21-32); CHLORIDE LEVEL 109 MEQ/L (98-107); CREATININE FOR GFR 0.84 MG/DL (0.70-1.30); GLOMERULAR FILTRATION RATE > 60.0 (>35); GLUCOSE, FASTING 76 MG/DL (70-100); MAGNESIUM LEVEL 2.2 MG/DL (1.8-2.4); POTASSIUM SERUM 5.7 MEQ/L (3.5-5.1); SODIUM LEVEL 137 MEQ/L (136-145)
[2020-09-11 08:00] VITALS: BP 139/71
[2020-09-11] MEDS: TAMSULOSIN 0.4 MG CAP PO SCH (08:53)
[2020-09-11] MEDS: PANTOPRAZOLE 40MG TAB (PROTONIX) PO SCH (08:53)
[2020-09-11 08:54] VITALS: BP 139/71
[2020-09-11] MEDS: ASPIRIN 81 MG ENTERIC TAB PO SCH (08:54)
[2020-09-11] MEDS: FERROUS SULFATE 325MG TAB PO SCH (08:54)
[2020-09-11] MEDS: CYANOCOBALAMIN 500 MCG TAB PO SCH (08:54)
[2020-09-11] MEDS: METOPROLOL TART 25 MG TABLET PO SCH (08:54)
[2020-09-11] MEDS: SUCRALFATE 1 GM TAB PO SCH ×2 (08:54→12:12)
[2020-09-11] MEDS: ASCORBIC ACID 500 MG TAB PO SCH (08:54)
[2020-09-11] MEDS ORDERED: POTASSIUM CHLORIDE 10 MEQ SR TABLET PO SCH (09:00)
[2020-09-11] MEDS ORDERED: AMIO200T3 PO (11:12)
[2020-09-11] MEDS ORDERED: SUCR1TA PO (11:12)
== END 2020-09-11 13:20 | DRG 377 ==
LOC: M ED 09:53 → M ED INP 13:17 → ENRESERV 14:25 → M PCU 17:36
PROVIDERS: ADMIT General Practice; ATTEND Family Medicine
PROC: 30233N1 Transfusion of Nonautologous Red Blood Cells into Peripheral Vein, Percutaneous Approach (ICD-10-PCS; principal; 2020-09-02)
DX: K92.1 Melena (principal); I50.33 Acute on chronic diastolic (congestive) heart failure; I47.2 Ventricular tachycardia; D62 Acute posthemorrhagic anemia; J96.11 Chronic respiratory failure with hypoxia; I11.0 Hypertensive heart disease with heart failure; J06.9 Acute upper respiratory infection, unspecified; J44.9 Chronic obstructive pulmonary disease, unspecified; I27.20 Pulmonary hypertension, unspecified; E87.6 Hypokalemia; E78.5 Hyperlipidemia, unspecified; N40.0 Benign prostatic hyperplasia without lower urinary tract symptoms; E53.8 Deficiency of other specified B group vitamins; E03.9 Hypothyroidism, unspecified; Z87.891 Personal history of nicotine dependence; I25.10 Atherosclerotic heart disease of native coronary artery without angina pectoris; Z95.2 Presence of prosthetic heart valve; Z79.899 Other long term (current) drug therapy; Z79.82 Long term (current) use of aspirin; Z88.8 Allergy status to other drugs, medicaments and biological substances; I73.9 Peripheral vascular disease, unspecified; Z66 Do not resuscitate

== ENCOUNTER → 2020-09-12 | Outpatient (REF) | payer MEDICARE, OTHER ==
[~2020-09-12] MED LIST changes: +AMIO200T3 PO; +ASPI81TA26 PO; +FLUTISP NARES; +LEVO75TA4 PO; +PEG1POW PO; +SENO8.6T10 PO; +SUCR1TA PO; +TAMS1CAP17 PO; +TORS20TA2 PO; +VITA500075 PO
[2020-09-12 10:48] LABS: HEMATOCRIT 33.4 % (42.0-52.0); HEMOGLOBIN 9.9 g/dl (13.5-17.5); MEAN CORPUSCULAR HEMOGLOBIN 29.4 pg (27.0-33.0); MEAN CORPUSCULAR HGB CONC 29.6 g/dl (32.0-36.5); MEAN CORPUSCULAR VOLUME 99.1 fl (80.0-96.0); PLATELET COUNT, AUTOMATED 268 10^3/uL (150-450); RED BLOOD COUNT 3.37 10^6/uL (4.30-6.10); WHITE BLOOD COUNT 6.1 10^3/uL (4.0-10.0)
[2020-09-12 11:22] LABS: ERYTHROCYTE SEDIMENTATION RATE 43 mm/hr (0-20)
[2020-09-12 11:57] LABS: C REACTIVE PROTEIN QUANTITATIV 12.8 MG/DL (0.00-0.30); CALCIUM LEVEL 8.1 MG/DL (8.8-10.2); CREATININE FOR GFR 1.27 MG/DL (0.70-1.30); GLOMERULAR FILTRATION RATE 57.4 (>35); POTASSIUM SERUM 4.6 MEQ/L (3.5-5.1); URIC ACID 2.9 MG/DL (3.5-7.2)
== END ==
LOC: SKLAB2 09:50
DX: M10.9 Gout, unspecified (principal); I50.9 Heart failure, unspecified; E87.6 Hypokalemia

== ENCOUNTER → 2020-09-16 | Outpatient (REF) ==
[2020-09-16 11:56] LABS: HEMOGLOBIN A1c 4.8 %
== END ==
LOC: SKLAB2 07:00
DX: M10.9 Gout, unspecified (principal); R73.09 Other abnormal glucose

== ENCOUNTER → 2020-09-17 | Outpatient (REF) | payer MEDICARE, OTHER ==
[2020-09-17 13:10] LABS: CREATININE FOR GFR 1.38 MG/DL (0.70-1.30); GLOMERULAR FILTRATION RATE 52.1 (>35); POTASSIUM SERUM 4.1 MEQ/L (3.5-5.1)
--- NOTE | 2020-09-17 16:48 | REP ---
INDICATION: SOB/CHF. COMPARISON: 09/02/2020 TECHNIQUE: The technique utilized in obtaining the radiograph has magnified the cardiac silhouette and attenuated the interstitial markings. FINDINGS: There are patchy bibasilar opacities which are unchanged. There is bilateral CP angle blunting which is unchanged. Once again, the cardiac silhouette is magnified by technique. There is no change in the osseous structures. IMPRESSION: No significant change from 09/02/2020. <Electronically signed by Kentrell Greene > 09/17/20 [id number]
== END ==
LOC: SKLAB2 11:05
DX: I50.9 Heart failure, unspecified (principal); R91.8 Other nonspecific abnormal finding of lung field

== ENCOUNTER → 2020-09-18 | Outpatient (REF) | payer MEDICARE, OTHER | LOC: SKLAB2 07:00 | PROVIDERS: ATTEND Internal Medicine | DX: Z20.822 Contact with and (suspected) exposure to COVID-19 (principal) ==

== ENCOUNTER → 2020-09-19 | Outpatient (REF) ==
[2020-09-19 08:05] LABS: HEMOGLOBIN 9.7 g/dl (13.5-17.5); MEAN CORPUSCULAR HEMOGLOBIN 29.6 pg (27.0-33.0); MEAN CORPUSCULAR HGB CONC 30.3 g/dl (32.0-36.5); MEAN CORPUSCULAR VOLUME 97.6 fl (80.0-96.0); PLATELET COUNT, AUTOMATED 259 10^3/uL (150-450); RED BLOOD COUNT 3.28 10^6/uL (4.30-6.10); WHITE BLOOD COUNT 8.6 10^3/uL (4.0-10.0)
[2020-09-19 08:34] LABS: CALCIUM LEVEL 7.7 MG/DL (8.8-10.2); CREATININE FOR GFR 1.32 MG/DL (0.70-1.30); GLOMERULAR FILTRATION RATE 54.9 (>35); POTASSIUM SERUM 3.6 MEQ/L (3.5-5.1)
--- NOTE | 2020-09-19 15:02 | REP ---
INDICATION: CHF COMPARISON: 09/17/2020 TECHNIQUE: Portable AP view of the chest FINDINGS: Mediastinum and cardiac silhouette stable. Diffuse chronic interstitial changes noted with superimposed perihilar and lower lobe opacities minimally improved compared to prior examination small pleural effusions cannot be excluded. No pneumothorax. IMPRESSION: Bilateral airspace disease suggesting minimal improvement. Small pleural effusions suspected. <Electronically signed by Michael Blanco > 09/19/20 [id number]
== END ==
LOC: SKLAB3 11:55
DX: I50.9 Heart failure, unspecified (principal)

== ENCOUNTER → 2020-09-20 | Outpatient (REF) ==
[2020-09-20 09:00] LABS: CALCIUM LEVEL 7.7 MG/DL (8.8-10.2); CREATININE FOR GFR 1.3 MG/DL (0.70-1.30); GLOMERULAR FILTRATION RATE 55.9 (>35); POTASSIUM SERUM 3.4 MEQ/L (3.5-5.1)
== END ==
LOC: SKLAB3 07:00
DX: I50.9 Heart failure, unspecified (principal)